=== PATIENT | male | born 1945 | race Caucasian/White ===

== ENCOUNTER 2017-06-14 13:34 | Inpatient (IN) | payer OTHER, BC ==
[~2017-06-14 13:34] MED LIST: DIPRIVAN VIAL ONE; EPHEDRINE SULFATE INJ ONE; LTA KIT LIDOCAINE 4% ONE; NEOSTIGMINE INJ ONE; NORCURON INJ 10 MG VIAL ONE; QUELICIN (OR ANECTINE) ONE; ROBINUL ONE; TORADOL 30 MG VIAL ONE; ULTANE GAS IN ONE; VERSED ONE; ZOFRAN INJ 4 MG VIAL ONE
[2017-06-14 13:50] VITALS: BMI 27.6
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
[2017-06-14] MEDS ORDERED: NS 1000 ML 1,000 ML IV SCH (15:00)
--- NOTE | 2017-06-14 15:17 | CT ---
HISTORY: Abdominal pain. Study: CT abdomen and pelvis without contrast Comparison: None. Technique: Multiple axial images of the abdomen and pelvis were obtained from the lung bases to the pubic symphy sis without the administration of IV contrast. Dose reduction techniques including Automated Exposur e Control (AEC) and adjustment of mA and kV were utilized. Findings: Limited study secondary to lack of IV and oral contrast. 6 mm left lower lobe pulmonary nodule (series 3, image 10 and series 6, image 34). Otherwise, the vis ualized portions of the lung bases are unremarkable. Bilateral nonobstructing punctate renal nephroli ths. Simple appearing 2.7 cm right inferior renal pole cyst. The kidneys are otherwise unremarkable. The liver, spleen, pancreas, and adrenal glands are unremarkable in their CT appearance. The gallblad rosita is unremarkable in its CT appearance. No significant mesenteric lymphadenopathy. No free fluid or free air is seen within the abdomen. Limited evaluation of the large and small bowel secondary to collapse and lack of oral contrast. Extensive diverticulosis without evidence of diverticulitis. The cecum is markedly thickened to 2.1 cm with surrounding soft tissue stranding. The appendix is normal in size but there is some associated soft tissue stranding. No focal fluid collection to suggest abs cess formation. Remaining large and small bowel is unremarkable. The urinary bladder is grossly unrem arkable. Degenerative changes of the spine. No aggressive osseous lesions. IMPRESSION: 1. Marked mucosal thickening of the cecum with associated soft tissue stranding. This may represent a n infectious colitis, but neoplasm not entirely excluded. Recommend clinical correlation and direct v isualization. 2. The appendix appears normal but there is some associated soft tissue stranding. This may be relate d to the cecal inflammation, but early appendicitis not entirely excluded. 3. 6 mm left lower lobe pulmonary nodule. Recommend dedicated CT of the chest on outpatient basis for further characterization. Reported By:
[2017-06-14 15:19] LABS: BASOPHILS # (AUTO) 0.1 X10^3/uL (0.0-0.1); EOSINOPHILS # (AUTO) 0.2 x10^3/uL (0.0-0.2); EOSINOPHILS % (AUTO) 1.7 % (0.9-2.9); HEMATOCRIT 37.4 % (42.0-54.0); LYMPHOCYTES # (AUTO) 1.9 X10^3/uL (1.3-2.9); LYMPHOCYTES % (AUTO) 14.7 % (21.0-51.0); MEAN CORPUSCULAR HEMOGLOBIN 30.4 pg (27.0-34.0); MEAN CORPUSCULAR HGB CONC 34.6 g/dL (33.0-35.0); MEAN CORPUSCULAR VOLUME 87.8 fL (80.0-100.0); MEAN PLATELET VOLUME 7.8 fL (7.4-11.0); MONOCYTES # (AUTO) 1.1 x10^3/uL (0.3-0.8); MONOCYTES % (AUTO) 8.1 % (0.0-13.0); NEUTROPHILS # (AUTO) 9.9 x10^3/uL (2.2-4.8); NEUTROPHILS % (AUTO) 74.5 % (42.0-75.0); PLATELET COUNT 211 X10^3/uL (150.0-450.0); RED BLOOD COUNT 4.26 X10^6/uL (4.7-6.0); RED CELL DISTRIBUTION WIDTH 12.5 % (11.6-16.5); WHITE BLOOD COUNT 13.2 X10^3/uL (3.6-10.0)
[2017-06-14 15:29] LABS: ALANINE AMINOTRANSFERASE 22 Units/L (12-78); ALBUMIN 3.9 g/dL (3.4-5.0); ALKALINE PHOSPHATASE 48 Units/L (46-116); ASPARTATE AMINO TRANSFERASE 15 Units/L (15-37); BLOOD UREA NITROGEN 26 mg/dL (7-18); CARBON DIOXIDE 28.7 mmol/L (21-32); CHLORIDE 103 mmol/L (98-107); CREATININE 1.41 mg/dL (0.70-1.30); SODIUM 139 mmol/L (136-145); TOTAL PROTEIN 7.4 g/dL (6.4-8.2); eGFR BLACK RACES > 60 (>60); eGFR NON BLACK RACES 52 (>60)
[2017-06-14] MEDS ORDERED: ZOSYN VIAL 3.375 GM 3.375 GM in NS 100 ML IV + SPIKE MINIBAG* 100 ML IV ONE (15:34)
[2017-06-14] MEDS ORDERED: ZOSYN VIAL 3.375 GM IV ONE (15:34)
[2017-06-14] MEDS ORDERED: NS 100 ML IV 100 ML IV ONE (15:35)
[2017-06-14] MEDS ORDERED: DECADRON INJ ONE (15:48)
[2017-06-14] MEDS ORDERED: FENTANYL INJ 250 mcg ONE (15:48)
[2017-06-14] MEDS ORDERED: LR 1000 ML IV 1,000 ML IV ONE (15:48)
--- NOTE | 2017-06-14 16:06 | RAD ---
Examination: Portable AP chest History: Preop Findings: Normal heart size with clear lungs and pleural spaces. Impression: No acute or significant chest findings. Reported By:
[2017-06-14 17:17] LABS: BILIRUBIN,URINE NEGATIVE (NEGATIVE); BLOOD/HEMOGLOBIN,URINE NEGATIVE (NEGATIVE); GLUCOSE, URINE NEGATIVE (NEGATIVE); KETONES,URINE 2+ (NEGATIVE); LEUKOCYTE ESTERASE ,URINE NEGATIVE (NEGATIVE); NITRITES,URINE NEGATIVE (NEGATIVE); PROTEIN,URINE NEGATIVE (NEGATIVE); UROBILINOGEN,URINE NORMAL (NORMAL)
[2017-06-14 17:18] LABS: APPEARANCE,URINE CLEAR (CLEAR); COLOR,URINE YELLOW (YELLOW)
[2017-06-14] MEDS ORDERED: DILAUDID INJ ONE ×2 (17:48→19:38)
[2017-06-14] MEDS ORDERED: NS IRRIGATION 1000 ML 1,000 ML with BACITRACIN VIAL 50,000 UNIT IR ONE ×2 (18:30)
[2017-06-14] MEDS ORDERED: ZOFRAN INJ 4 MG VIAL IVP PRN (19:00)
[2017-06-14] MEDS ORDERED: REGLAN INJ 10 MG VIAL IVP PRN (19:00)
[2017-06-14] MEDS ORDERED: PHENERGAN INJ 25 MG IVP PRN (19:00)
[2017-06-14] MEDS ORDERED: BENADRYL INJ 50 MG VIAL IVP PRN (19:00)
[2017-06-14] MEDS ORDERED: NS 1000 ML 1,000 ML ONE (19:17)
[2017-06-14] MEDS ORDERED: BACTROBAN OINT ONE (19:21)
[2017-06-14] MEDS: DILAUDID INJ IVP PRN ×4 (19:45→21:40)
--- NOTE | 2017-06-14 20:11 | OR.GENERIC ---
Post-Op Note Generic - Post-Op Note Operative Report: diagnostic laparoscopy and Rt colectomy was done . finding : inflamation around the cecum with possible sealed perforation with induration and mass of the cecum close to the ileo cecal valve . the appendix was retro cecal and normal Pt did well . EBL 200 to 250 . to keep NPO ,IVF and ATB . DVT prophylaxis .
[2017-06-14] MEDS: D5 1/2 NS 1000 ML 1,000 ML IV SCH (21:00)
[2017-06-14] MEDS: LOVENOX INJ 30 MG SYR SC SCH (21:00)
[2017-06-14] MEDS: ZOSYN VIAL 3.375 GM 3.375 GM in NS 100 ML IV + SPIKE MINIBAG* 100 ML IV SCH ×2 (21:00→21:43)
[2017-06-15] MEDS: DILAUDID INJ IVP PRN ×11 (00:24→22:18)
[2017-06-15] MEDS: D5 1/2 NS 1000 ML 1,000 ML IV SCH ×6 (05:41→23:45)
[2017-06-15] MEDS: ZOSYN VIAL 3.375 GM 3.375 GM in NS 100 ML IV + SPIKE MINIBAG* 100 ML IV SCH ×3 (05:42→21:05)
[2017-06-15 06:20] LABS: BASOPHILS % (AUTO) 0.4 % (0.2-1.0); EOSINOPHILS # (AUTO) 0.1 x10^3/uL (0.0-0.2); EOSINOPHILS % (AUTO) 0.6 % (0.9-2.9); HEMATOCRIT 35.3 % (42.0-54.0); HEMOGLOBIN 12.3 g/dL (13.5-18.0); LYMPHOCYTES # (AUTO) 0.8 X10^3/uL (1.3-2.9); LYMPHOCYTES % (AUTO) 6.2 % (21.0-51.0); MEAN CORPUSCULAR HEMOGLOBIN 30.7 pg (27.0-34.0); MEAN CORPUSCULAR HGB CONC 34.7 g/dL (33.0-35.0); MEAN CORPUSCULAR VOLUME 88.4 fL (80.0-100.0); MEAN PLATELET VOLUME 8.1 fL (7.4-11.0); MONOCYTES # (AUTO) 1.2 x10^3/uL (0.3-0.8); MONOCYTES % (AUTO) 9.6 % (0.0-13.0); NEUTROPHILS # (AUTO) 10.7 x10^3/uL (2.2-4.8); NEUTROPHILS % (AUTO) 83.2 % (42.0-75.0); PLATELET COUNT 177 X10^3/uL (150.0-450.0); RED BLOOD COUNT 3.99 X10^6/uL (4.7-6.0); RED CELL DISTRIBUTION WIDTH 12.7 % (11.6-16.5); WHITE BLOOD COUNT 12.9 X10^3/uL (3.6-10.0)
[2017-06-15 06:38] LABS: ALANINE AMINOTRANSFERASE 18 Units/L (12-78); ALBUMIN 3.1 g/dL (3.4-5.0); ALKALINE PHOSPHATASE 46 Units/L (46-116); ASPARTATE AMINO TRANSFERASE 22 Units/L (15-37); BLOOD UREA NITROGEN 25 mg/dL (7-18); CALCIUM 7.5 mg/dL (8.5-10.1); CARBON DIOXIDE 22.5 mmol/L (21-32); CHLORIDE 106 mmol/L (98-107); COR CA(FOR HYPOALB) 8.2 mg/dL (8.5-10.1); COR NA(FOR HYPERGLY) 141 mmol/L (136-145); CREATININE 1.23 mg/dL (0.70-1.30); SODIUM 140 mmol/L (136-145); TOTAL PROTEIN 6.3 g/dL (6.4-8.2); eGFR BLACK RACES > 60 (>60); eGFR NON BLACK RACES > 60 (>60)
[2017-06-15] MEDS ORDERED: NS 250 ML IV 250 ML IV ONE (07:51)
--- NOTE | 2017-06-15 09:30 | DR.PROGNOT ---
Hospital Progress Notes - Progress Note for Day of: Progress Note Date: 06/15/17 - Chief Complaint Chief Complaint: PO diagnostic Laparoscopy . laparotomy , Rt colectomy for cecal mass suspicious for neoplasm. doing well this am , c/o incisional pain . urine OP is fair . - Past Medical Family Social History Past Med/Fam/Surg Hx: No changes since H&P Allergies: Allergies No Known Drug Allergies Allergy (Verified 06/14/17 15:30) - Review Of Systems ROS: No change since H&P - Vital Signs Vital Signs: Temperature 100 F Pulse Rate [Apical] 101 Pulse Rate 103 Respiratory Rate 12 Blood Pressure [Left Arm] 120/56 Blood Pressure 140/66 O2 Sat by Pulse Oximetry 97 - Physical Exam Oriented: Normal Eyes: Normal Ear: Normal Nose: Normal Cardiovascular: Tachycardia : Other (has fuentes cath in place .) GI:Auscultation: Decreased GI: Tenderness: Diffuse (generalized tenderness with hypoactive BS) Mood Description: Calm Speech Pattern: Clear, Appropriate - Laboratory and Diagnostics Result Diagrams: 06/15/17 05:40 06/15/17 05:40 Labs: Laboratory WBC 12.9 X10^3/uL (3.6-10.0) H 06/15/17 05:40 RBC 3.99 X10^6/uL (4.7-6.0) L 06/15/17 05:40 Hgb 12.3 g/dL (13.5-18.0) L 06/15/17 05:40 Hct 35.3 % (42.0-54.0) L 06/15/17 05:40 MCV 88.4 fL (80.0-100.0) 06/15/17 05:40 MCH 30.7 pg (27.0-34.0) 06/15/17 05:40 MCHC 34.7 g/dL (33.0-35.0) 06/15/17 05:40 RDW 12.7 % (11.6-16.5) 06/15/17 05:40 Plt Count 177 X10^3/uL (150.0-450.0) 06/15/17 05:40 MPV 8.1 fL (7.4-11.0) 06/15/17 05:40 Neut % (Auto) 83.2 % (42.0-75.0) H 06/15/17 05:40 Lymph % (Auto) 6.2 % (21.0-51.0) L 06/15/17 05:40 [place] % (Auto) 9.6 % (0.0-13.0) 06/15/17 05:40 Eos % (Auto) 0.6 % (0.9-2.9) L 06/15/17 05:40 Baso % (Auto) 0.4 % (0.2-1.0) 06/15/17 05:40 Neut # (Auto) 10.7 x10^3/uL (2.2-4.8) H 06/15/17 05:40 Lymph # (Auto) 0.8 X10^3/uL (1.3-2.9) L 06/15/17 05:40 [place] # (Auto) 1.2 x10^3/uL (0.3-0.8) H 06/15/17 05:40 Eos # (Auto) 0.1 x10^3/uL (0.0-0.2) 06/15/17 05:40 Baso # (Auto) 0.0 X10^3/uL (0.0-0.1) 06/15/17 05:40 Absolute Nucleated RBC 0.0 /100WBC 06/15/17 05:40 Sodium 140 mmol/L (136-145) 06/15/17 05:40 Corrected Sodium 141 mmol/L (136-145) 06/15/17 05:40 Potassium 4.5 mmol/L (3.5-5.1) 06/15/17 05:40 Chloride 106 mmol/L (98-107) 06/15/17 05:40 Carbon Dioxide 22.5 mmol/L (21-32) 06/15/17 05:40 BUN 25 mg/dL (7-18) H 06/15/17 05:40 Creatinine 1.23 mg/dL (0.70-1.30) 06/15/17 05:40 Est GFR (MDRD) Af Amer > 60 (>60) 06/15/17 05:40 Est GFR (MDRD) Non-Af > 60 (>60) 06/15/17 05:40 Glucose 140 mg/dL (65-99) H 06/15/17 05:40 Calcium 7.5 mg/dL (8.5-10.1) L 06/15/17 05:40 Corrected Calcium 8.2 mg/dL (8.5-10.1) L 06/15/17 05:40 Total Bilirubin 0.80 mg/dL (0.2-1.0) 06/15/17 05:40 AST 22 Units/L (15-37) 06/15/17 05:40 ALT 18 Units/L (12-78) 06/15/17 05:40 Alkaline Phosphatase 46 Units/L (46-116) 06/15/17 05:40 Total Protein 6.3 g/dL (6.4-8.2) L 06/15/17 05:40 Albumin 3.1 g/dL (3.4-5.0) L 06/15/17 05:40 Globulin 3.2 g/dL (2.5-4.5) 06/15/17 05:40 Albumin/Globulin Ratio 1.0 Ratio (1.1-2.1) L 06/15/17 05:40 Specimen Type Catherized urine 06/14/17 17:10 Urine Color Yellow (YELLOW) 06/14/17 17:10 Urine Appearance Clear (CLEAR) 06/14/17 17:10 Urine pH 5.0 (5.0 - 8.0) 06/14/17 17:10 Ur Specific [place] 1.020 (1.000-1.030) 06/14/17 17:10 Urine Protein Negative (NEGATIVE) 06/14/17 17:10 Urine Glucose (UA) Negative (NEGATIVE) 06/14/17 17:10 Urine Ketones 2+ (NEGATIVE) 06/14/17 17:10 Urine Occult Blood Negative (NEGATIVE) 06/14/17 17:10 Urine Nitrite Negative (NEGATIVE) 06/14/17 17:10 Urine Bilirubin Negative (NEGATIVE) 06/14/17 17:10 Urine Urobilinogen Normal (NORMAL) 06/14/17 17:10 Ur Leukocyte Esterase Negative (NEGATIVE) 06/14/17 17:10 Tissue Pathology To follow 06/14/17 20:46 - Assessment and Plan 1: PO Rt colectomy for sealed perforated cecal mass suspicious for malignancy . CKD. HTN. same PO care , IN ATB, DVT prophylaxis
[2017-06-15] MEDS: LOVENOX INJ 30 MG SYR SC SCH ×2 (09:41→20:21)
--- NOTE | 2017-06-15 11:22 | PCM.PROG ---
Progress Note - Progress Note for Day of Date: 06/15/17 - Subjective Subjective: IS STATUS POST RIGHT COLECTOMY. DURING DIAGNOSTIC LAPAROSCOPY, PATIENT WAS FOUND WITH A MASS OF THE CECUM CLOSE TO THE ILEOCECAL VALVE. BIPOSY WAS TAKEN AND SENT TO PATHOLOGY, HOWEVER, BELIEVES MASS IS SUSPICIOUS FOR MALIGNANCY. TODAY, HE IS ALERT AND ORIENTED, LYING IN BED ON MORNING ROUNDS. SPOUSE IS AT BEDSIDE. HE IS NOTED WITH A NG TUBE TO INTERMITTENT SUCTION. ON EXAMINATION, HEART IS REGULAR IN RATE AND RHYTHM. BILATERAL LUNGS ARE CLEAR TO AUSCULTATION. ABDOMEN IS NOTED WITH TENDERNESS TO PALPATION. OLIVIA DRAIN NOTED. HIS VITALS THIS MORNING ARE 100.0-101-12-98%-120/56. LABS WERE OBTAINED. ABNORMAL LAB VALUES INCLUDE THE FOLLOWING: WBC 12.9, RBC 3.99, HGB 12.3, HCT 35.3, BUN 25, GLUCOSE 140, CALCIUM 7.5, TOTAL PROTEIN 6.3, ALBUMIN 3.1. HE IS CURRENTLY RECEIVING ZOSYN 3.375GM IV TID, LOVENOX 30MG SC BID , AND DILAUDID FOR PAIN. WE WILL CONTINUE WITH CURRENT PLAN OF CARE TODAY. WILL CONTINUE TO FOLLOW PATIENT. WE PLAN TO FOLLOW UP WITH AM LABS AND CONTINUE TO MONITOR PATIENT. - Past Medical Family Social History Past Med/Fam/Surg Hx: No changes since H&P Allergies: Allergies No Known Drug Allergies Allergy (Verified 06/14/17 15:30) - Review of Systems ROS: No change since H&P - Vital Signs and I&O's Vital Signs: Temperature 100 F Pulse Rate [Apical] 96 Pulse Rate 103 Respiratory Rate 14 Blood Pressure [Left Arm] 133/60 Blood Pressure 140/66 O2 Sat by Pulse Oximetry 96 Intake and Output: Intake & Output 06/12/17 06/13/17 06/14/17 06/15/17 11:59 11:59 11:59 11:59 Intake Total 787 Output Total 1095 Balance -308 - Physical Exam Oriented: Normal Eyes: Normal Ear: Normal Nose: Normal Respiratory: Normal Cardiovascular: Tachycardia : Other (has fuentes cath in place .) Auscultation: Bowel Sounds: Decreased Tenderness: Diffuse (generalized tenderness with hypoactive BS) Skin: Normal Musculoskeletal: Normal Psychiatric: Normal Mood Description: Calm Speech Pattern: Clear, Appropriate - Laboratory and Diagnostics Result Diagrams: 06/15/17 05:40 06/15/17 05:40 Labs: Laboratory WBC 12.9 X10^3/uL (3.6-10.0) H 06/15/17 05:40 RBC 3.99 X10^6/uL (4.7-6.0) L 06/15/17 05:40 Hgb 12.3 g/dL (13.5-18.0) L 06/15/17 05:40 Hct 35.3 % (42.0-54.0) L 06/15/17 05:40 MCV 88.4 fL (80.0-100.0) 06/15/17 05:40 MCH 30.7 pg (27.0-34.0) 06/15/17 05:40 MCHC 34.7 g/dL (33.0-35.0) 06/15/17 05:40 RDW 12.7 % (11.6-16.5) 06/15/17 05:40 Plt Count 177 X10^3/uL (150.0-450.0) 06/15/17 05:40 MPV 8.1 fL (7.4-11.0) 06/15/17 05:40 Neut % (Auto) 83.2 % (42.0-75.0) H 06/15/17 05:40 Lymph % (Auto) 6.2 % (21.0-51.0) L 06/15/17 05:40 [place] % (Auto) 9.6 % (0.0-13.0) 06/15/17 05:40 Eos % (Auto) 0.6 % (0.9-2.9) L 06/15/17 05:40 Baso % (Auto) 0.4 % (0.2-1.0) 06/15/17 05:40 Neut # (Auto) 10.7 x10^3/uL (2.2-4.8) H 06/15/17 05:40 Lymph # (Auto) 0.8 X10^3/uL (1.3-2.9) L 06/15/17 05:40 [place] # (Auto) 1.2 x10^3/uL (0.3-0.8) H 06/15/17 05:40 Eos # (Auto) 0.1 x10^3/uL (0.0-0.2) 06/15/17 05:40 Baso # (Auto) 0.0 X10^3/uL (0.0-0.1) 06/15/17 05:40 Absolute Nucleated RBC 0.0 /100WBC 06/15/17 05:40 Sodium 140 mmol/L (136-145) 06/15/17 05:40 Corrected Sodium 141 mmol/L (136-145) 06/15/17 05:40 Potassium 4.5 mmol/L (3.5-5.1) 06/15/17 05:40 Chloride 106 mmol/L (98-107) 06/15/17 05:40 Carbon Dioxide 22.5 mmol/L (21-32) 06/15/17 05:40 BUN 25 mg/dL (7-18) H 06/15/17 05:40 Creatinine 1.23 mg/dL (0.70-1.30) 06/15/17 05:40 Est GFR (MDRD) Af Amer > 60 (>60) 06/15/17 05:40 Est GFR (MDRD) Non-Af > 60 (>60) 06/15/17 05:40 Glucose 140 mg/dL (65-99) H 06/15/17 05:40 Calcium 7.5 mg/dL (8.5-10.1) L 06/15/17 05:40 Corrected Calcium 8.2 mg/dL (8.5-10.1) L 06/15/17 05:40 Total Bilirubin 0.80 mg/dL (0.2-1.0) 06/15/17 05:40 AST 22 Units/L (15-37) 06/15/17 05:40 ALT 18 Units/L (12-78) 06/15/17 05:40 Alkaline Phosphatase 46 Units/L (46-116) 06/15/17 05:40 Total Protein 6.3 g/dL (6.4-8.2) L 06/15/17 05:40 Albumin 3.1 g/dL (3.4-5.0) L 06/15/17 05:40 Globulin 3.2 g/dL (2.5-4.5) 06/15/17 05:40 Albumin/Globulin Ratio 1.0 Ratio (1.1-2.1) L 06/15/17 05:40 Specimen Type Catherized urine 06/14/17 17:10 Urine Color Yellow (YELLOW) 06/14/17 17:10 Urine Appearance Clear (CLEAR) 06/14/17 17:10 Urine pH 5.0 (5.0 - 8.0) 06/14/17 17:10 Ur Specific [place] 1.020 (1.000-1.030) 06/14/17 17:10 Urine Protein Negative (NEGATIVE) 06/14/17 17:10 Urine Glucose (UA) Negative (NEGATIVE) 06/14/17 17:10 Urine Ketones 2+ (NEGATIVE) 06/14/17 17:10 Urine Occult Blood Negative (NEGATIVE) 06/14/17 17:10 Urine Nitrite Negative (NEGATIVE) 06/14/17 17:10 Urine Bilirubin Negative (NEGATIVE) 06/14/17 17:10 Urine Urobilinogen Normal (NORMAL) 06/14/17 17:10 Ur Leukocyte Esterase Negative (NEGATIVE) 06/14/17 17:10 Tissue Pathology To follow 06/14/17 20:46 - Plan (1) Status post colectomy Status: Acute Plan: LOVENOX FOR PROPHYLAXIX, DILAUDID IV FOR PAIN, ZOFRAN FOR NAUSEA, ZOSYN IV TID, CONTINUE TO MONITOR (2) Cecum mass Status: Acute Plan: BIOPSY SENT TO PATHOLOGY FOR REVIEW. CONTINUE TO MONITOR
[2017-06-15] MEDS: ZESTRIL TAB 40 MG PO SCH (20:22)
[2017-06-15] MEDS: NORMODYNE TAB 200 MG PO SCH (20:22)
[2017-06-15] MEDS: NORVASC TAB 5 MG PO SCH (20:22)
[2017-06-15] MEDS: ZOFRAN INJ 4 MG VIAL IV PRN (20:30)
[2017-06-16] MEDS: DILAUDID INJ IVP PRN ×8 (00:17→19:52)
[2017-06-16] MEDS: D5 1/2 NS 1000 ML 1,000 ML IV SCH ×4 (04:32→20:30)
[2017-06-16] MEDS: ZOSYN VIAL 3.375 GM 3.375 GM in NS 100 ML IV + SPIKE MINIBAG* 100 ML IV SCH ×3 (05:06→21:08)
[2017-06-16 05:28] LABS: BASOPHILS # (AUTO) 0.1 X10^3/uL (0.0-0.1); EOSINOPHILS # (AUTO) 0.1 x10^3/uL (0.0-0.2); EOSINOPHILS % (AUTO) 0.8 % (0.9-2.9); HEMATOCRIT 33.6 % (42.0-54.0); HEMOGLOBIN 11.6 g/dL (13.5-18.0); LYMPHOCYTES % (AUTO) 7.6 % (21.0-51.0); MEAN CORPUSCULAR HEMOGLOBIN 30.3 pg (27.0-34.0); MEAN CORPUSCULAR HGB CONC 34.5 g/dL (33.0-35.0); MEAN CORPUSCULAR VOLUME 87.8 fL (80.0-100.0); MEAN PLATELET VOLUME 7.7 fL (7.4-11.0); MONOCYTES # (AUTO) 1.5 x10^3/uL (0.3-0.8); MONOCYTES % (AUTO) 11.4 % (0.0-13.0); NEUTROPHILS # (AUTO) 10.7 x10^3/uL (2.2-4.8); NEUTROPHILS % (AUTO) 79.2 % (42.0-75.0); PLATELET COUNT 189 X10^3/uL (150.0-450.0); RED BLOOD COUNT 3.83 X10^6/uL (4.7-6.0); RED CELL DISTRIBUTION WIDTH 12.4 % (11.6-16.5); WHITE BLOOD COUNT 13.5 X10^3/uL (3.6-10.0)
[2017-06-16 05:48] LABS: ALANINE AMINOTRANSFERASE 22 Units/L (12-78); ALBUMIN 2.8 g/dL (3.4-5.0); ALKALINE PHOSPHATASE 51 Units/L (46-116); ASPARTATE AMINO TRANSFERASE 30 Units/L (15-37); BLOOD UREA NITROGEN 12 mg/dL (7-18); CALCIUM 7.6 mg/dL (8.5-10.1); CARBON DIOXIDE 24.1 mmol/L (21-32); CHLORIDE 105 mmol/L (98-107); COR CA(FOR HYPOALB) 8.6 mg/dL (8.5-10.1); COR NA(FOR HYPERGLY) 138 mmol/L (136-145); CREATININE 1.11 mg/dL (0.70-1.30); SODIUM 137 mmol/L (136-145); TOTAL PROTEIN 6.8 g/dL (6.4-8.2); eGFR BLACK RACES > 60 (>60); eGFR NON BLACK RACES > 60 (>60)
[2017-06-16] MEDS: TAB-A-VITE PO SCH (08:14)
[2017-06-16] MEDS: ZESTRIL TAB 40 MG PO SCH ×2 (08:14→20:20)
[2017-06-16] MEDS: NORVASC TAB 5 MG PO SCH ×2 (08:15→20:20)
[2017-06-16] MEDS: NORMODYNE TAB 200 MG PO SCH ×2 (08:16→20:19)
[2017-06-16] MEDS: LOVENOX INJ 30 MG SYR SC SCH ×2 (08:17→20:19)
--- NOTE | 2017-06-16 09:03 | DR.PROGNOT ---
Hospital Progress Notes - Progress Note for Day of: Progress Note Date: 06/16/17 - Chief Complaint Chief Complaint: PO diagnostic Laparoscopy . laparotomy , Rt colectomy for cecal mass suspicious for neoplasm. doing well this am , c/o incisional pain . moderate drainage in OLIVIA. low grade fever - Past Medical Family Social History Past Med/Fam/Surg Hx: No changes since H&P Allergies: Allergies No Known Drug Allergies Allergy (Verified 06/14/17 15:30) - Review Of Systems ROS: No change since H&P - Vital Signs Vital Signs: Temperature 99.1 F Pulse Rate [Apical] 103 Pulse Rate 103 Respiratory Rate 15 Blood Pressure [Left Arm] 152/66 Blood Pressure 140/66 O2 Sat by Pulse Oximetry 96 - Physical Exam Oriented: Normal Eyes: Normal Ear: Normal Nose: Normal Respiratory: Rhonchi (scattered rhonchi both lung [place] .) Cardiovascular: Tachycardia : Other (has fuentes cath in place .) GI:Auscultation: Decreased GI: Tenderness: Diffuse (generalized tenderness with hypoactive BS) Skin: Normal Musculoskeletal: Normal Psychiatric: Normal Mood Description: Calm Speech Pattern: Clear, Appropriate - Laboratory and Diagnostics Result Diagrams: 06/16/17 04:55 06/16/17 04:55 Labs: Laboratory WBC 13.5 X10^3/uL (3.6-10.0) H 06/16/17 04:55 RBC 3.83 X10^6/uL (4.7-6.0) L 06/16/17 04:55 Hgb 11.6 g/dL (13.5-18.0) L 06/16/17 04:55 Hct 33.6 % (42.0-54.0) L 06/16/17 04:55 MCV 87.8 fL (80.0-100.0) 06/16/17 04:55 MCH 30.3 pg (27.0-34.0) 06/16/17 04:55 MCHC 34.5 g/dL (33.0-35.0) 06/16/17 04:55 RDW 12.4 % (11.6-16.5) 06/16/17 04:55 Plt Count 189 X10^3/uL (150.0-450.0) 06/16/17 04:55 MPV 7.7 fL (7.4-11.0) 06/16/17 04:55 Neut % (Auto) 79.2 % (42.0-75.0) H 06/16/17 04:55 Lymph % (Auto) 7.6 % (21.0-51.0) L 06/16/17 04:55 [place] % (Auto) 11.4 % (0.0-13.0) 06/16/17 04:55 Eos % (Auto) 0.8 % (0.9-2.9) L 06/16/17 04:55 Baso % (Auto) 1.0 % (0.2-1.0) 06/16/17 04:55 Neut # (Auto) 10.7 x10^3/uL (2.2-4.8) H 06/16/17 04:55 Lymph # (Auto) 1.0 X10^3/uL (1.3-2.9) L 06/16/17 04:55 [place] # (Auto) 1.5 x10^3/uL (0.3-0.8) H 06/16/17 04:55 Eos # (Auto) 0.1 x10^3/uL (0.0-0.2) 06/16/17 04:55 Baso # (Auto) 0.1 X10^3/uL (0.0-0.1) 06/16/17 04:55 Absolute Nucleated RBC 0.1 /100WBC 06/16/17 04:55 Sodium 137 mmol/L (136-145) 06/16/17 04:55 Corrected Sodium 138 mmol/L (136-145) 06/16/17 04:55 Potassium 3.9 mmol/L (3.5-5.1) 06/16/17 04:55 Chloride 105 mmol/L (98-107) 06/16/17 04:55 Carbon Dioxide 24.1 mmol/L (21-32) 06/16/17 04:55 BUN 12 mg/dL (7-18) 06/16/17 04:55 Creatinine 1.11 mg/dL (0.70-1.30) 06/16/17 04:55 Est GFR (MDRD) Af Amer > 60 (>60) 06/16/17 04:55 Est GFR (MDRD) Non-Af > 60 (>60) 06/16/17 04:55 Glucose 126 mg/dL (65-99) H 06/16/17 04:55 Calcium 7.6 mg/dL (8.5-10.1) L 06/16/17 04:55 Corrected Calcium 8.6 mg/dL (8.5-10.1) 06/16/17 04:55 Total Bilirubin 0.70 mg/dL (0.2-1.0) 06/16/17 04:55 AST 30 Units/L (15-37) 06/16/17 04:55 ALT 22 Units/L (12-78) 06/16/17 04:55 Alkaline Phosphatase 51 Units/L (46-116) 06/16/17 04:55 Total Protein 6.8 g/dL (6.4-8.2) 06/16/17 04:55 Albumin 2.8 g/dL (3.4-5.0) L 06/16/17 04:55 Globulin 4.0 g/dL (2.5-4.5) 06/16/17 04:55 Albumin/Globulin Ratio 0.7 Ratio (1.1-2.1) L 06/16/17 04:55 Specimen Type Catherized urine 06/14/17 17:10 Urine Color Yellow (YELLOW) 06/14/17 17:10 Urine Appearance Clear (CLEAR) 06/14/17 17:10 Urine pH 5.0 (5.0 - 8.0) 06/14/17 17:10 Ur Specific [place] 1.020 (1.000-1.030) 06/14/17 17:10 Urine Protein Negative (NEGATIVE) 06/14/17 17:10 Urine Glucose (UA) Negative (NEGATIVE) 06/14/17 17:10 Urine Ketones 2+ (NEGATIVE) 06/14/17 17:10 Urine Occult Blood Negative (NEGATIVE) 06/14/17 17:10 Urine Nitrite Negative (NEGATIVE) 06/14/17 17:10 Urine Bilirubin Negative (NEGATIVE) 06/14/17 17:10 Urine Urobilinogen Normal (NORMAL) 06/14/17 17:10 Ur Leukocyte Esterase Negative (NEGATIVE) 06/14/17 17:10 Tissue Pathology To follow 06/14/17 20:46 - Assessment and Plan 1: PO Rt colectomy for 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 CKD. HTN. Ex smoker. pulmonary and PO care , IN ATB, DVT prophylaxis. on liquid only - Problem Patient Problems: Patient Problems Cecum mass (Acute) K63.9 Status post colectomy (Acute) Z90.49
[2017-06-17] MEDS: DILAUDID INJ IVP PRN ×3 (01:40→18:25)
[2017-06-17] MEDS: D5 1/2 NS 1000 ML 1,000 ML IV SCH ×5 (01:40→16:00)
[2017-06-17] MEDS: ZOSYN VIAL 3.375 GM 3.375 GM in NS 100 ML IV + SPIKE MINIBAG* 100 ML IV SCH ×4 (05:02→23:00)
[2017-06-17 06:41] LABS: BASOPHILS # (AUTO) 0.1 X10^3/uL (0.0-0.1); BASOPHILS % (AUTO) 0.7 % (0.2-1.0); EOSINOPHILS # (AUTO) 0.1 x10^3/uL (0.0-0.2); EOSINOPHILS % (AUTO) 1.1 % (0.9-2.9); HEMOGLOBIN 11.1 g/dL (13.5-18.0); LYMPHOCYTES % (AUTO) 8.5 % (21.0-51.0); MEAN CORPUSCULAR HEMOGLOBIN 30.5 pg (27.0-34.0); MEAN CORPUSCULAR HGB CONC 34.6 g/dL (33.0-35.0); MEAN PLATELET VOLUME 8.1 fL (7.4-11.0); MONOCYTES # (AUTO) 1.3 x10^3/uL (0.3-0.8); MONOCYTES % (AUTO) 10.9 % (0.0-13.0); NEUTROPHILS # (AUTO) 9.5 x10^3/uL (2.2-4.8); NEUTROPHILS % (AUTO) 78.8 % (42.0-75.0); PLATELET COUNT 210 X10^3/uL (150.0-450.0); RED BLOOD COUNT 3.64 X10^6/uL (4.7-6.0); RED CELL DISTRIBUTION WIDTH 12.2 % (11.6-16.5); WHITE BLOOD COUNT 12.1 X10^3/uL (3.6-10.0)
[2017-06-17 06:59] LABS: ALANINE AMINOTRANSFERASE 23 Units/L (12-78); ALBUMIN 2.6 g/dL (3.4-5.0); ALKALINE PHOSPHATASE 50 Units/L (46-116); ASPARTATE AMINO TRANSFERASE 25 Units/L (15-37); BLOOD UREA NITROGEN 9 mg/dL (7-18); CALCIUM 8.2 mg/dL (8.5-10.1); CARBON DIOXIDE 26.2 mmol/L (21-32); CHLORIDE 104 mmol/L (98-107); COR CA(FOR HYPOALB) 9.3 mg/dL (8.5-10.1); COR NA(FOR HYPERGLY) 139 mmol/L (136-145); CREATININE 1.04 mg/dL (0.70-1.30); SODIUM 138 mmol/L (136-145); TOTAL PROTEIN 6.3 g/dL (6.4-8.2); eGFR BLACK RACES > 60 (>60); eGFR NON BLACK RACES > 60 (>60)
[2017-06-17] MEDS ORDERED: MAGNESIUM SULFATE 1 GM/100 mL PREMIX 1 GM/100 ML BAG IV PRN (08:09)
[2017-06-17] MEDS ORDERED: POTASSIUM CHL 60 MEQ/NS 0.45% 500 ML IV PRN (08:09)
[2017-06-17] MEDS ORDERED: POTASSIUM CHL 40 MEQ/NS 0.45% 500 ML IV PRN (08:09)
[2017-06-17] MEDS ORDERED: POTASSIUM CHLORIDE LIQ 20 MEQ UDC PO PRN (08:09)
[2017-06-17] MEDS ORDERED: K-RIDER 10 MEQ/NS 100 ML 10 MEQ/100 ML BAG IV PRN (08:09)
--- NOTE | 2017-06-17 08:42 | DR.PROGNOT ---
Hospital Progress Notes - Progress Note for Day of: Progress Note Date: 06/17/17 - Chief Complaint Chief Complaint: PO diagnostic Laparoscopy . laparotomy , Rt colectomy for cecal mass suspicious for neoplasm. doing well this am ,. less abdominal pain ,c/o severe heartburn and reflux. moderate drainage in OLIVIA. low grade fever - Past Medical Family Social History Past Med/Fam/Surg Hx: No changes since H&P Allergies: Allergies No Known Drug Allergies Allergy (Verified 06/14/17 15:30) - Review Of Systems ROS: No change since H&P - Vital Signs Vital Signs: Temperature 99.5 F Pulse Rate [Apical] 92 Pulse Rate 103 Respiratory Rate 26 Blood Pressure [Left Arm] 172/73 Blood Pressure 140/66 O2 Sat by Pulse Oximetry 93 - Physical Exam Oriented: Normal Eyes: Normal Ear: Normal Nose: Normal Respiratory: Rhonchi (scattered rhonchi both lung [place] .) Cardiovascular: Tachycardia : Other (has fuentes cath in place .) GI:Auscultation: Decreased GI: Tenderness: Diffuse (generalized tenderness with hypoactive BS) Skin: Normal Musculoskeletal: Normal Psychiatric: Normal Mood Description: Calm Speech Pattern: Clear, Appropriate - Laboratory and Diagnostics Result Diagrams: 06/17/17 05:38 04 05:38 Labs: Laboratory WBC 12.1 X10^3/uL (3.6-10.0) H 06/17/17 05:38 RBC 3.64 X10^6/uL (4.7-6.0) L 06/17/17 05:38 Hgb 11.1 g/dL (13.5-18.0) L 06/17/17 05:38 Hct 32.0 % (42.0-54.0) L 06/17/17 05:38 MCV 88.0 fL (80.0-100.0) 06/17/17 05:38 MCH 30.5 pg (27.0-34.0) 06/17/17 05:38 MCHC 34.6 g/dL (33.0-35.0) 06/17/17 05:38 RDW 12.2 % (11.6-16.5) 06/17/17 05:38 Plt Count 210 X10^3/uL (150.0-450.0) 06/17/17 05:38 MPV 8.1 fL (7.4-11.0) 06/17/17 05:38 Neut % (Auto) 78.8 % (42.0-75.0) H 06/17/17 05:38 Lymph % (Auto) 8.5 % (21.0-51.0) L 06/17/17 05:38 [place] % (Auto) 10.9 % (0.0-13.0) 06/17/17 05:38 Eos % (Auto) 1.1 % (0.9-2.9) 06/17/17 05:38 Baso % (Auto) 0.7 % (0.2-1.0) 06/17/17 05:38 Neut # (Auto) 9.5 x10^3/uL (2.2-4.8) H 06/17/17 05:38 Lymph # (Auto) 1.0 X10^3/uL (1.3-2.9) L 06/17/17 05:38 [place] # (Auto) 1.3 x10^3/uL (0.3-0.8) H 06/17/17 05:38 Eos # (Auto) 0.1 x10^3/uL (0.0-0.2) 06/17/17 05:38 Baso # (Auto) 0.1 X10^3/uL (0.0-0.1) 06/17/17 05:38 Absolute Nucleated RBC 0.0 /100WBC 06/17/17 05:38 Sodium 138 mmol/L (136-145) 06/17/17 05:38 Corrected Sodium 139 mmol/L (136-145) 06/17/17 05:38 Potassium 3.4 mmol/L (3.5-5.1) L 06/17/17 05:38 Chloride 104 mmol/L (98-107) 06/17/17 05:38 Carbon Dioxide 26.2 mmol/L (21-32) 06/17/17 05:38 BUN 9 mg/dL (7-18) 06/17/17 05:38 Creatinine 1.04 mg/dL (0.70-1.30) 06/17/17 05:38 Est GFR (MDRD) Af Amer > 60 (>60) 06/17/17 05:38 Est GFR (MDRD) Non-Af > 60 (>60) 06/17/17 05:38 Glucose 132 mg/dL (65-99) H 06/17/17 05:38 Calcium 8.2 mg/dL (8.5-10.1) L 06/17/17 05:38 Corrected Calcium 9.3 mg/dL (8.5-10.1) 06/17/17 05:38 Magnesium 2.1 mg/dL (1.7-2.9) 06/17/17 05:38 Total Bilirubin 0.70 mg/dL (0.2-1.0) 06/17/17 05:38 AST 25 Units/L (15-37) 06/17/17 05:38 ALT 23 Units/L (12-78) 06/17/17 05:38 Alkaline Phosphatase 50 Units/L (46-116) 06/17/17 05:38 Total Protein 6.3 g/dL (6.4-8.2) L 06/17/17 05:38 Albumin 2.6 g/dL (3.4-5.0) L 06/17/17 05:38 Globulin 3.7 g/dL (2.5-4.5) 06/17/17 05:38 Albumin/Globulin Ratio 0.7 Ratio (1.1-2.1) L 06/17/17 05:38 Specimen Type Catherized urine 06/14/17 17:10 Urine Color Yellow (YELLOW) 06/14/17 17:10 Urine Appearance Clear (CLEAR) 06/14/17 17:10 Urine pH 5.0 (5.0 - 8.0) 06/14/17 17:10 Ur Specific [place] 1.020 (1.000-1.030) 06/14/17 17:10 Urine Protein Negative (NEGATIVE) 06/14/17 17:10 Urine Glucose (UA) Negative (NEGATIVE) 06/14/17 17:10 Urine Ketones 2+ (NEGATIVE) 06/14/17 17:10 Urine Occult Blood Negative (NEGATIVE) 06/14/17 17:10 Urine Nitrite Negative (NEGATIVE) 06/14/17 17:10 Urine Bilirubin Negative (NEGATIVE) 06/14/17 17:10 Urine Urobilinogen Normal (NORMAL) 06/14/17 17:10 Ur Leukocyte Esterase Negative (NEGATIVE) 06/14/17 17:10 Tissue Pathology To follow 06/14/17 20:46 - Assessment and Plan 1: PO Rt colectomy for 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 HTN. Ex smoker. pulmonary and PO care , on IV ATB, DVT prophylaxis. on liquid only . added protonix . to have chest xray today. - Problem Patient Problems: Patient Problems Cecum mass (Acute) K63.9 Status post colectomy (Acute) Z90.49
[2017-06-17] MEDS: NORVASC TAB 5 MG PO SCH ×2 (08:43→20:51)
[2017-06-17] MEDS: TAB-A-VITE PO SCH (08:43)
[2017-06-17] MEDS: NORMODYNE TAB 200 MG PO SCH ×2 (08:43→20:51)
[2017-06-17] MEDS: ZESTRIL TAB 40 MG PO SCH ×2 (08:43→20:50)
[2017-06-17] MEDS: LOVENOX INJ 30 MG SYR SC SCH ×2 (08:44→20:50)
[2017-06-17] MEDS: K-LYTE EFFERVESCENT PO PRN (08:53)
[2017-06-17] MEDS: PROTONIX INJ 40 MG VIAL IVP SCH ×2 (08:55→20:50)
--- NOTE | 2017-06-17 09:33 | RAD ---
HISTORY: Fever Study: Chest AP portable Comparison: 06/14/2017 Findings: The heart is within normal limits in size. The harika are normal. The lungs are hypo inflated but free of acute infiltrates. Minimal bibasilar subsegmental atelectasis is present. The bony thorax is unrem arkable. IMPRESSION: No acute infiltrates Minimal bibasilar subsegmental atelectasis Reported By:
[2017-06-17] MEDS: ZOFRAN INJ 4 MG VIAL IV PRN (10:04)
--- NOTE | 2017-06-17 20:38 | PCM.PROG ---
Progress Note - Progress Note for Day of Date: 06/16/17 - Subjective Subjective: IS STATUS POST RIGHT COLECTOMY FOR CECAL MASS SUSPICIOUS FOR MALIGNANCY. TODAY, HE IS ALERT AND ORIENTED, LYING IN BED ON MORNING ROUNDS. SPOUSE IS AT BEDSIDE. HE IS NOTED WITH COMPLAINTS OF PAIN TO INCISION SITE. ON EXAMINATION, HEART IS REGULAR IN RATE AND RHYTHM. BILATERAL LUNGS ARE NOTED WITH RHONCHI THROUGHOUT. ABDOMEN IS NOTED WITH TENDERNESS TO PALPATION. OLIVIA DRAIN NOTED WITH MODERATE DRAINAGE. NG TUBE WAS REMOVED YESTERDAY. HIS VITALS THIS MORNING ARE 100.7-101-22-93%-144/64. LABS WERE OBTAINED. ABNORMAL LAB VALUES INCLUDE THE FOLLOWING: WBC 13.5, 3.83, HGB 11.6, HCT 33.6, GLUCOSE 126, CALCIUM 7.3, ALBUMIN 2.8. PATHOLOGY REPORT IS PENDING. HE CONTINUES TO RECEIVE ZOSYN 3.375GM IV TID, LOVENOX 30MG SC BID, AND DILAUDID FOR PAIN. WE WILL CONTINUE WITH CURRENT PLAN OF CARE TODAY. WILL CONTINUE TO FOLLOW PATIENT. WE PLAN TO FOLLOW UP WITH AM LABS AND CONTINUE TO MONITOR PATIENT. - Past Medical Family Social History Past Med/Fam/Surg Hx: No changes since H&P Allergies: Allergies No Known Drug Allergies Allergy (Verified 06/14/17 15:30) - Review of Systems ROS: No change since H&P - Vital Signs and I&O's Vital Signs: Temperature 97.9 F Pulse Rate [Apical] 76 Pulse Rate 103 Respiratory Rate 24 Blood Pressure [Left Arm] 138/64 Blood Pressure 140/66 O2 Sat by Pulse Oximetry 97 Intake and Output: Intake & Output 06/15/17 06/16/17 06/17/17 06/18/17 11:59 11:59 11:59 11:59 Intake Total 787 3936 4411 1535 Output Total 1270 1695 3065 0 Balance -483 2241 1346 1535 - Physical Exam Oriented: Normal Eyes: Normal Ear: Normal Nose: Normal Respiratory: Generalized, Rhonchi (scattered rhonchi both lung [place] .) Cardiovascular: Tachycardia : Other (has fuentes cath in place .) Auscultation: Bowel Sounds: Decreased Palpation: Normal Tenderness: Diffuse (generalized tenderness with hypoactive BS) Skin: Normal Musculoskeletal: Normal Psychiatric: Normal Mood Description: Calm Speech Pattern: Clear, Appropriate - Laboratory and Diagnostics Result Diagrams: 06/17/17 05:38 06/17/17 05:38 Labs: Laboratory WBC 12.1 X10^3/uL (3.6-10.0) H 06/17/17 05:38 RBC 3.64 X10^6/uL (4.7-6.0) L 06/17/17 05:38 Hgb 11.1 g/dL (13.5-18.0) L 06/17/17 05:38 Hct 32.0 % (42.0-54.0) L 06/17/17 05:38 MCV 88.0 fL (80.0-100.0) 06/17/17 05:38 MCH 30.5 pg (27.0-34.0) 06/17/17 05:38 MCHC 34.6 g/dL (33.0-35.0) 06/17/17 05:38 RDW 12.2 % (11.6-16.5) 06/17/17 05:38 Plt Count 210 X10^3/uL (150.0-450.0) 06/17/17 05:38 MPV 8.1 fL (7.4-11.0) 06/17/17 05:38 Neut % (Auto) 78.8 % (42.0-75.0) H 06/17/17 05:38 Lymph % (Auto) 8.5 % (21.0-51.0) L 06/17/17 05:38 [place] % (Auto) 10.9 % (0.0-13.0) 06/17/17 05:38 Eos % (Auto) 1.1 % (0.9-2.9) 06/17/17 05:38 Baso % (Auto) 0.7 % (0.2-1.0) 06/17/17 05:38 Neut # (Auto) 9.5 x10^3/uL (2.2-4.8) H 06/17/17 05:38 Lymph # (Auto) 1.0 X10^3/uL (1.3-2.9) L 06/17/17 05:38 [place] # (Auto) 1.3 x10^3/uL (0.3-0.8) H 06/17/17 05:38 Eos # (Auto) 0.1 x10^3/uL (0.0-0.2) 06/17/17 05:38 Baso # (Auto) 0.1 X10^3/uL (0.0-0.1) 06/17/17 05:38 Absolute Nucleated RBC 0.0 /100WBC 06/17/17 05:38 Sodium 138 mmol/L (136-145) 06/17/17 05:38 Corrected Sodium 139 mmol/L (136-145) 06/17/17 05:38 Potassium 3.4 mmol/L (3.5-5.1) L 06/17/17 05:38 Chloride 104 mmol/L (98-107) 06/17/17 05:38 Carbon Dioxide 26.2 mmol/L (21-32) 06/17/17 05:38 BUN 9 mg/dL (7-18) 06/17/17 05:38 Creatinine 1.04 mg/dL (0.70-1.30) 06/17/17 05:38 Est GFR (MDRD) Af Amer > 60 (>60) 06/17/17 05:38 Est GFR (MDRD) Non-Af > 60 (>60) 06/17/17 05:38 Glucose 132 mg/dL (65-99) H 06/17/17 05:38 Calcium 8.2 mg/dL (8.5-10.1) L 06/17/17 05:38 Corrected Calcium 9.3 mg/dL (8.5-10.1) 06/17/17 05:38 Magnesium 2.1 mg/dL (1.7-2.9) 06/17/17 05:38 Total Bilirubin 0.70 mg/dL (0.2-1.0) 06/17/17 05:38 AST 25 Units/L (15-37) 06/17/17 05:38 ALT 23 Units/L (12-78) 06/17/17 05:38 Alkaline Phosphatase 50 Units/L (46-116) 06/17/17 05:38 Total Protein 6.3 g/dL (6.4-8.2) L 06/17/17 05:38 Albumin 2.6 g/dL (3.4-5.0) L 06/17/17 05:38 Globulin 3.7 g/dL (2.5-4.5) 06/17/17 05:38 Albumin/Globulin Ratio 0.7 Ratio (1.1-2.1) L 06/17/17 05:38 Specimen Type Catherized urine 06/14/17 17:10 Urine Color Yellow (YELLOW) 06/14/17 17:10 Urine Appearance Clear (CLEAR) 06/14/17 17:10 Urine pH 5.0 (5.0 - 8.0) 06/14/17 17:10 Ur Specific [place] 1.020 (1.000-1.030) 06/14/17 17:10 Urine Protein Negative (NEGATIVE) 06/14/17 17:10 Urine Glucose (UA) Negative (NEGATIVE) 06/14/17 17:10 Urine Ketones 2+ (NEGATIVE) 06/14/17 17:10 Urine Occult Blood Negative (NEGATIVE) 06/14/17 17:10 Urine Nitrite Negative (NEGATIVE) 06/14/17 17:10 Urine Bilirubin Negative (NEGATIVE) 06/14/17 17:10 Urine Urobilinogen Normal (NORMAL) 06/14/17 17:10 Ur Leukocyte Esterase Negative (NEGATIVE) 06/14/17 17:10 Tissue Pathology To follow 06/14/17 20:46 - Plan (1) Status post colectomy Status: Acute Plan: LOVENOX FOR PROPHYLAXIS, DILAUDID IV FOR PAIN, ZOFRAN FOR NAUSEA, ZOSYN IV TID, CONTINUE TO MONITOR (2) Cecum mass Status: Acute Plan: BIOPSY SENT TO PATHOLOGY FOR REVIEW. CONTINUE TO MONITOR
[2017-06-18] MEDS: D5 1/2 NS 1000 ML 1,000 ML IV SCH ×6 (00:28→15:57)
[2017-06-18] MEDS: DILAUDID INJ IVP PRN ×4 (00:30→21:51)
[2017-06-18 05:25] LABS: BASOPHILS # (AUTO) 0.1 X10^3/uL (0.0-0.1); BASOPHILS % (AUTO) 0.6 % (0.2-1.0); EOSINOPHILS # (AUTO) 0.3 x10^3/uL (0.0-0.2); EOSINOPHILS % (AUTO) 2.8 % (0.9-2.9); HEMATOCRIT 32.4 % (42.0-54.0); HEMOGLOBIN 11.4 g/dL (13.5-18.0); LYMPHOCYTES # (AUTO) 1.5 X10^3/uL (1.3-2.9); LYMPHOCYTES % (AUTO) 13.8 % (21.0-51.0); MEAN CORPUSCULAR HEMOGLOBIN 30.8 pg (27.0-34.0); MEAN CORPUSCULAR VOLUME 87.9 fL (80.0-100.0); MEAN PLATELET VOLUME 7.6 fL (7.4-11.0); MONOCYTES # (AUTO) 1.2 x10^3/uL (0.3-0.8); MONOCYTES % (AUTO) 11.2 % (0.0-13.0); NEUTROPHILS # (AUTO) 7.8 x10^3/uL (2.2-4.8); NEUTROPHILS % (AUTO) 71.6 % (42.0-75.0); PLATELET COUNT 259 X10^3/uL (150.0-450.0); RED BLOOD COUNT 3.69 X10^6/uL (4.7-6.0); RED CELL DISTRIBUTION WIDTH 12.4 % (11.6-16.5); WHITE BLOOD COUNT 10.9 X10^3/uL (3.6-10.0)
[2017-06-18 05:45] LABS: ALANINE AMINOTRANSFERASE 20 Units/L (12-78); ALBUMIN 2.4 g/dL (3.4-5.0); ALKALINE PHOSPHATASE 41 Units/L (46-116); ASPARTATE AMINO TRANSFERASE 17 Units/L (15-37); BLOOD UREA NITROGEN 10 mg/dL (7-18); CALCIUM 7.8 mg/dL (8.5-10.1); CHLORIDE 105 mmol/L (98-107); COR CA(FOR HYPOALB) 9.1 mg/dL (8.5-10.1); COR NA(FOR HYPERGLY) 141 mmol/L (136-145); CREATININE 1.14 mg/dL (0.70-1.30); SODIUM 141 mmol/L (136-145); TOTAL PROTEIN 5.9 g/dL (6.4-8.2); eGFR BLACK RACES > 60 (>60); eGFR NON BLACK RACES > 60 (>60)
[2017-06-18] MEDS: ZOSYN VIAL 3.375 GM 3.375 GM in NS 100 ML IV + SPIKE MINIBAG* 100 ML IV SCH ×2 (06:00→13:17)
--- NOTE | 2017-06-18 07:10 | RAD ---
HISTORY: Fever Study: Chest AP portable Comparison: 06/17/2017 Findings: The heart is within normal limits in size. The harika are normal. The right lung and left upper lung fi elds are clear. There has been interval development since the prior examination of increasing density in the retrocardiac area of the left lower lobe obscuring the left hemidiaphragm. This could be on t he basis of atelectasis, infiltrate, effusion, or combination. The bony thorax is unremarkable. IMPRESSION: Interval development of increasing density in the retrocardiac area of the left lower lobe which coul d be on the basis of atelectasis, infiltrate, effusion or combination Reported By:
[2017-06-18] MEDS: LOVENOX INJ 30 MG SYR SC SCH ×2 (08:00→20:27)
[2017-06-18] MEDS: TAB-A-VITE PO SCH (08:00)
[2017-06-18] MEDS: PROTONIX INJ 40 MG VIAL IVP SCH ×2 (08:00→20:26)
[2017-06-18] MEDS: ZESTRIL TAB 40 MG PO SCH ×2 (08:00→20:26)
[2017-06-18] MEDS: NORVASC TAB 5 MG PO SCH ×2 (08:01→20:27)
[2017-06-18] MEDS: NORMODYNE TAB 200 MG PO SCH ×2 (08:01→20:27)
--- NOTE | 2017-06-18 08:52 | DR.PROGNOT ---
Hospital Progress Notes - Progress Note for Day of: Progress Note Date: 06/18/17 - Chief Complaint Chief Complaint: PO diagnostic Laparoscopy . laparotomy , Rt colectomy for cecal mass suspicious for neoplasm. doing well this am ,. no BM yet , no nausea or vomiting. moderate drainage in OLIVIA. afebrile for 24 h . will advance diet. low grade fever - Past Medical Family Social History Past Med/Fam/Surg Hx: No changes since H&P Allergies: Allergies No Known Drug Allergies Allergy (Verified 06/14/17 15:30) - Review Of Systems ROS: No change since H&P - Vital Signs Vital Signs: Temperature 98.1 F Pulse Rate [Apical] 66 Pulse Rate 103 Respiratory Rate 20 Blood Pressure [Left Arm] 132/62 Blood Pressure 140/66 O2 Sat by Pulse Oximetry 95 - Physical Exam Oriented: Normal Eyes: Normal Ear: Normal Nose: Normal Respiratory: Generalized, Rhonchi (scattered rhonchi both lung [place] .) Cardiovascular: Tachycardia : Other (has fuentes cath in place .) GI:Auscultation: Decreased GI:Palpation: Normal GI: Tenderness: Diffuse (mild distention . active BS .) Skin: Normal Musculoskeletal: Normal Psychiatric: Normal Mood Description: Calm Speech Pattern: Clear, Appropriate - Laboratory and Diagnostics Result Diagrams: 06/18/17 05:00 06/18/17 05:00 Labs: Laboratory WBC 10.9 X10^3/uL (3.6-10.0) H 06/18/17 05:00 RBC 3.69 X10^6/uL (4.7-6.0) L 06/18/17 05:00 Hgb 11.4 g/dL (13.5-18.0) L 06/18/17 05:00 Hct 32.4 % (42.0-54.0) L 06/18/17 05:00 MCV 87.9 fL (80.0-100.0) 06/18/17 05:00 MCH 30.8 pg (27.0-34.0) 06/18/17 05:00 MCHC 35.0 g/dL (33.0-35.0) 06/18/17 05:00 RDW 12.4 % (11.6-16.5) 06/18/17 05:00 Plt Count 259 X10^3/uL (150.0-450.0) 06/18/17 05:00 MPV 7.6 fL (7.4-11.0) 06/18/17 05:00 Neut % (Auto) 71.6 % (42.0-75.0) 06/18/17 05:00 Lymph % (Auto) 13.8 % (21.0-51.0) L 06/18/17 05:00 [place] % (Auto) 11.2 % (0.0-13.0) 06/18/17 05:00 Eos % (Auto) 2.8 % (0.9-2.9) 06/18/17 05:00 Baso % (Auto) 0.6 % (0.2-1.0) 06/18/17 05:00 Neut # (Auto) 7.8 x10^3/uL (2.2-4.8) H 06/18/17 05:00 Lymph # (Auto) 1.5 X10^3/uL (1.3-2.9) 06/18/17 05:00 [place] # (Auto) 1.2 x10^3/uL (0.3-0.8) H 06/18/17 05:00 Eos # (Auto) 0.3 x10^3/uL (0.0-0.2) H 06/18/17 05:00 Baso # (Auto) 0.1 X10^3/uL (0.0-0.1) 06/18/17 05:00 Absolute Nucleated RBC 0.0 /100WBC 06/18/17 05:00 Sodium 141 mmol/L (136-145) 06/18/17 05:00 Corrected Sodium 141 mmol/L (136-145) 06/18/17 05:00 Potassium 3.3 mmol/L (3.5-5.1) L 06/18/17 05:00 Chloride 105 mmol/L (98-107) 06/18/17 05:00 Carbon Dioxide 29.0 mmol/L (21-32) 06/18/17 05:00 BUN 10 mg/dL (7-18) 06/18/17 05:00 Creatinine 1.14 mg/dL (0.70-1.30) 06/18/17 05:00 Est GFR (MDRD) Af Amer > 60 (>60) 06/18/17 05:00 Est GFR (MDRD) Non-Af > 60 (>60) 06/18/17 05:00 Glucose 112 mg/dL (65-99) H 06/18/17 05:00 Calcium 7.8 mg/dL (8.5-10.1) L 06/18/17 05:00 Corrected Calcium 9.1 mg/dL (8.5-10.1) 06/18/17 05:00 Magnesium 2.1 mg/dL (1.7-2.9) 06/17/17 05:38 Total Bilirubin 0.60 mg/dL (0.2-1.0) 06/18/17 05:00 AST 17 Units/L (15-37) 06/18/17 05:00 ALT 20 Units/L (12-78) 06/18/17 05:00 Alkaline Phosphatase 41 Units/L (46-116) L 06/18/17 05:00 Total Protein 5.9 g/dL (6.4-8.2) L 06/18/17 05:00 Albumin 2.4 g/dL (3.4-5.0) L 06/18/17 05:00 Globulin 3.5 g/dL (2.5-4.5) 06/18/17 05:00 Albumin/Globulin Ratio 0.7 Ratio (1.1-2.1) L 06/18/17 05:00 Specimen Type Catherized urine 06/14/17 17:10 Urine Color Yellow (YELLOW) 06/14/17 17:10 Urine Appearance Clear (CLEAR) 06/14/17 17:10 Urine pH 5.0 (5.0 - 8.0) 06/14/17 17:10 Ur Specific [place] 1.020 (1.000-1.030) 06/14/17 17:10 Urine Protein Negative (NEGATIVE) 06/14/17 17:10 Urine Glucose (UA) Negative (NEGATIVE) 06/14/17 17:10 Urine Ketones 2+ (NEGATIVE) 06/14/17 17:10 Urine Occult Blood Negative (NEGATIVE) 06/14/17 17:10 Urine Nitrite Negative (NEGATIVE) 06/14/17 17:10 Urine Bilirubin Negative (NEGATIVE) 06/14/17 17:10 Urine Urobilinogen Normal (NORMAL) 04/15/18 17:10 Ur Leukocyte Esterase Negative (NEGATIVE) 06/14/17 17:10 Tissue Pathology To follow 06/14/17 20:46 - Assessment and Plan 1: PO Rt colectomy for 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 HTN. Ex smoker. same pulmonary and post operative care , DVT prophylaxis. on full liquid . - Problem Patient Problems: Patient Problems Cecum mass (Acute) K63.9 Status post colectomy (Acute) Z90.49
[2017-06-18] MEDS: DUONEB 0.5 MG/3 MG NEB SCH ×4 (11:56→20:35)
--- NOTE | 2017-06-18 13:32 | PCM.PROG ---
Progress Note - Progress Note for Day of Date: 06/17/17 - Subjective Subjective: IS STATUS POST RIGHT COLECTOMY FOR CECAL MASS SUSPICIOUS FOR MALIGNANCY. TODAY, HE IS ALERT AND ORIENTED, LYING IN BED ON MORNING ROUNDS. SPOUSE IS AT BEDSIDE. HE CONTINUES WITH MILD PAIN TO INCISION SITE. HE IS ALSO NOTED WITH COMPLAINTS OF HEARTBURN, REFLUX, AND SHORTNESS OF BREATH. ON EXAMINATION, HEART IS REGULAR IN RATE AND RHYTHM. BILATERAL LUNGS CONTINUE WITH RHONCHI THROUGHOUT. ABDOMEN IS NOTED WITH TENDERNESS TO PALPATION. OLIVIA DRAIN NOTED WITH MODERATE DRAINAGE. HIS VITALS THIS MORNING ARE 99.4-90-12-94%-147/ 64. LABS WERE OBTAINED. ABNORMAL LAB VALUES INCLUDE THE FOLLOWING: WBC 12.1, RBC 3.64, HGB 11.1, HCT 32.0, POTASSIUM 3.4, GLUCOSE 132, CALCIUM 8.2, TOTAL PROTEIN 6.3, ALBUMIN 2.6. A CHEST XRAY WAS OBTAINED TODAY AND REVEALED NO ACUTE INFILTRATES. MINIMAL BIBASILAR SUBSEGMENTAL ATELECTASIS. HE IS CURRENTLY RECEIVING ZOSYN 3.375GM IV TID. WE WILL CONTINUE WITH CURRENT PLAN OF CARE TODAY. WILL CONTINUE TO FOLLOW PATIENT. WE PLAN TO FOLLOW UP WITH AM LABS AND CONTINUE TO MONITOR PATIENT. - Past Medical Family Social History Past Med/Fam/Surg Hx: No changes since H&P Allergies: Allergies No Known Drug Allergies Allergy (Verified 06/14/17 15:30) - Review of Systems ROS: No change since H&P - Vital Signs and I&O's Vital Signs: Temperature 98.6 F Pulse Rate [Apical] 69 Pulse Rate 69 Respiratory Rate 23 Blood Pressure [Left Arm] 148/66 Blood Pressure 140/66 O2 Sat by Pulse Oximetry 96 Intake and Output: Intake & Output 06/16/17 06/17/17 06/18/17 06/19/17 11:59 11:59 11:59 11:59 Intake Total 3936 4411 5079 Output Total 1695 3065 3345 Balance 2241 9316 1734 - Physical Exam Oriented: Normal Eyes: Normal Ear: Normal Nose: Normal Throat: Normal Respiratory: Generalized, Rhonchi (scattered rhonchi both lung [place] .) Cardiovascular: Tachycardia : Normal Tenderness: Diffuse Skin: Normal Musculoskeletal: Normal Psychiatric: Normal Mood Description: Calm Speech Pattern: Clear, Appropriate - Laboratory and Diagnostics Result Diagrams: 06/18/17 05:00 06/18/17 05:00 Labs: Laboratory WBC 10.9 X10^3/uL (3.6-10.0) H 06/18/17 05:00 RBC 3.69 X10^6/uL (4.7-6.0) L 06/18/17 05:00 Hgb 11.4 g/dL (13.5-18.0) L 06/18/17 05:00 Hct 32.4 % (42.0-54.0) L 06/18/17 05:00 MCV 87.9 fL (80.0-100.0) 06/18/17 05:00 MCH 30.8 pg (27.0-34.0) 06/18/17 05:00 MCHC 35.0 g/dL (33.0-35.0) 06/18/17 05:00 RDW 12.4 % (11.6-16.5) 06/18/17 05:00 Plt Count 259 X10^3/uL (150.0-450.0) 06/18/17 05:00 MPV 7.6 fL (7.4-11.0) 06/18/17 05:00 Neut % (Auto) 71.6 % (42.0-75.0) 06/18/17 05:00 Lymph % (Auto) 13.8 % (21.0-51.0) L 06/18/17 05:00 [place] % (Auto) 11.2 % (0.0-13.0) 06/18/17 05:00 Eos % (Auto) 2.8 % (0.9-2.9) 06/18/17 05:00 Baso % (Auto) 0.6 % (0.2-1.0) 06/18/17 05:00 Neut # (Auto) 7.8 x10^3/uL (2.2-4.8) H 06/18/17 05:00 Lymph # (Auto) 1.5 X10^3/uL (1.3-2.9) 06/18/17 05:00 [place] # (Auto) 1.2 x10^3/uL (0.3-0.8) H 06/18/17 05:00 Eos # (Auto) 0.3 x10^3/uL (0.0-0.2) H 06/18/17 05:00 Baso # (Auto) 0.1 X10^3/uL (0.0-0.1) 06/18/17 05:00 Absolute Nucleated RBC 0.0 /100WBC 06/18/17 05:00 Sodium 141 mmol/L (136-145) 06/18/17 05:00 Corrected Sodium 141 mmol/L (136-145) 06/18/17 05:00 Potassium 3.3 mmol/L (3.5-5.1) L 06/18/17 05:00 Chloride 105 mmol/L (98-107) 06/18/17 05:00 Carbon Dioxide 29.0 mmol/L (21-32) 06/18/17 05:00 BUN 10 mg/dL (7-18) 06/18/17 05:00 Creatinine 1.14 mg/dL (0.70-1.30) 06/18/17 05:00 Est GFR (MDRD) Af Amer > 60 (>60) 06/18/17 05:00 Est GFR (MDRD) Non-Af > 60 (>60) 06/18/17 05:00 Glucose 112 mg/dL (65-99) H 06/18/17 05:00 Calcium 7.8 mg/dL (8.5-10.1) L 06/18/17 05:00 Corrected Calcium 9.1 mg/dL (8.5-10.1) 06/18/17 05:00 Magnesium 2.1 mg/dL (1.7-2.9) 06/17/17 05:38 Total Bilirubin 0.60 mg/dL (0.2-1.0) 06/18/17 05:00 AST 17 Units/L (15-37) 06/18/17 05:00 ALT 20 Units/L (12-78) 06/18/17 05:00 Alkaline Phosphatase 41 Units/L (46-116) L 06/18/17 05:00 Total Protein 5.9 g/dL (6.4-8.2) L 06/18/17 05:00 Albumin 2.4 g/dL (3.4-5.0) L 06/18/17 05:00 Globulin 3.5 g/dL (2.5-4.5) 06/18/17 05:00 Albumin/Globulin Ratio 0.7 Ratio (1.1-2.1) L 06/18/17 05:00 Specimen Type Catherized urine 06/14/17 17:10 Urine Color Yellow (YELLOW) 06/14/17 17:10 Urine Appearance Clear (CLEAR) 06/14/17 17:10 Urine pH 5.0 (5.0 - 8.0) 06/14/17 17:10 Ur Specific [place] 1.020 (1.000-1.030) 06/14/17 17:10 Urine Protein Negative (NEGATIVE) 06/14/17 17:10 Urine Glucose (UA) Negative (NEGATIVE) 06/14/17 17:10 Urine Ketones 2+ (NEGATIVE) 06/14/17 17:10 Urine Occult Blood Negative (NEGATIVE) 06/14/17 17:10 Urine Nitrite Negative (NEGATIVE) 06/14/17 17:10 Urine Bilirubin Negative (NEGATIVE) 06/14/17 17:10 Urine Urobilinogen Normal (NORMAL) 06/14/17 17:10 Ur Leukocyte Esterase Negative (NEGATIVE) 06/14/17 17:10 Tissue Pathology To follow 06/14/17 20:46 - Plan (1) Status post colectomy Status: Acute Plan: LOVENOX FOR PROPHYLAXIS, DILAUDID IV FOR PAIN, ZOFRAN FOR NAUSEA, ZOSYN IV TID, CONTINUE TO MONITOR (2) Cecum mass Status: Acute Plan: BIOPSY SENT TO PATHOLOGY FOR REVIEW. CONTINUE TO MONITOR (3) Hypertension Status: Acute Qualifiers: Hypertension type: essential hypertension Qualified Code(s): I10 - Essential (primary) hypertension Plan: NORVASC 5MG PO BID, LABETALOL 200MG PO BID, LISINOPRIL 40MG PO BID, CONTINUE TO MONITOR (4) Hypokalemia Status: Acute Plan: POTASSIUM REPLACEMENT PER PROTOCOL, CONTINUE TO MONITOR
[2017-06-18] MEDS: K-LYTE EFFERVESCENT PO PRN (22:58)
[2017-06-18] MEDS: ZOFRAN INJ 4 MG VIAL IV PRN (22:58)
[2017-06-19 05:23] LABS: BASOPHILS # (AUTO) 0.1 X10^3/uL (0.0-0.1); BASOPHILS % (AUTO) 0.9 % (0.2-1.0); EOSINOPHILS # (AUTO) 0.5 x10^3/uL (0.0-0.2); EOSINOPHILS % (AUTO) 4.5 % (0.9-2.9); HEMATOCRIT 31.8 % (42.0-54.0); HEMOGLOBIN 11.2 g/dL (13.5-18.0); LYMPHOCYTES # (AUTO) 1.6 X10^3/uL (1.3-2.9); LYMPHOCYTES % (AUTO) 15.2 % (21.0-51.0); MEAN CORPUSCULAR HEMOGLOBIN 30.6 pg (27.0-34.0); MEAN CORPUSCULAR HGB CONC 35.3 g/dL (33.0-35.0); MEAN CORPUSCULAR VOLUME 86.8 fL (80.0-100.0); MEAN PLATELET VOLUME 7.5 fL (7.4-11.0); MONOCYTES # (AUTO) 1.2 x10^3/uL (0.3-0.8); MONOCYTES % (AUTO) 11.3 % (0.0-13.0); NEUTROPHILS # (AUTO) 7.3 x10^3/uL (2.2-4.8); NEUTROPHILS % (AUTO) 68.1 % (42.0-75.0); PLATELET COUNT 307 X10^3/uL (150.0-450.0); RED BLOOD COUNT 3.66 X10^6/uL (4.7-6.0); RED CELL DISTRIBUTION WIDTH 12.2 % (11.6-16.5); WHITE BLOOD COUNT 10.7 X10^3/uL (3.6-10.0)
[2017-06-19 05:27] LABS: ALANINE AMINOTRANSFERASE 21 Units/L (12-78); ALBUMIN 2.4 g/dL (3.4-5.0); ALKALINE PHOSPHATASE 40 Units/L (46-116); ASPARTATE AMINO TRANSFERASE 15 Units/L (15-37); BLOOD UREA NITROGEN 9 mg/dL (7-18); CARBON DIOXIDE 26.8 mmol/L (21-32); CHLORIDE 106 mmol/L (98-107); COR CA(FOR HYPOALB) 9.3 mg/dL (8.5-10.1); COR NA(FOR HYPERGLY) 141 mmol/L (136-145); CREATININE 1.01 mg/dL (0.70-1.30); SODIUM 141 mmol/L (136-145); TOTAL PROTEIN 5.9 g/dL (6.4-8.2); eGFR BLACK RACES > 60 (>60); eGFR NON BLACK RACES > 60 (>60)
[2017-06-19] MEDS: K-LYTE EFFERVESCENT PO PRN (06:15)
--- NOTE | 2017-06-19 06:58 | RAD ---
HISTORY: Fever Study: Chest AP portable Comparison: 06/18/2017 Findings: Heart is within normal limits in size. The harika are normal. The aorta is calcified. The right lung an d left upper lung [place] are clear. Persistent increased density is present in the retrocardiac area of the left lower lobe. This could be on the basis of atelectasis, infiltrate, effusion or combinatio n. The bony thorax is unremarkable. IMPRESSION: Persistent increased density in the retrocardiac area of the left lower lobe which could be on the ba sis of atelectasis, infiltrate, effusion, or combination. Reported By:
[2017-06-19] MEDS: D5 1/2 NS 1000 ML 1,000 ML IV SCH ×4 (07:27→21:06)
[2017-06-19] MEDS: DILAUDID INJ IVP PRN ×2 (07:45→23:40)
[2017-06-19] MEDS: ZOFRAN INJ 4 MG VIAL IV PRN ×2 (07:46→21:52)
[2017-06-19] MEDS: NORMODYNE TAB 200 MG PO SCH ×2 (08:58→20:30)
[2017-06-19] MEDS: LOVENOX INJ 30 MG SYR SC SCH ×2 (08:58→20:30)
[2017-06-19] MEDS: NORVASC TAB 5 MG PO SCH ×2 (08:58→20:29)
[2017-06-19] MEDS: PROTONIX INJ 40 MG VIAL IVP SCH ×2 (08:59→20:28)
[2017-06-19] MEDS: TAB-A-VITE PO SCH (08:59)
[2017-06-19] MEDS: ZESTRIL TAB 40 MG PO SCH ×2 (08:59→20:29)
[2017-06-19] MEDS: DUONEB 0.5 MG/3 MG NEB SCH ×4 (09:55→20:08)
--- NOTE | 2017-06-19 11:01 | DR.PROGNOT ---
Hospital Progress Notes - Progress Note for Day of: Progress Note Date: 06/19/17 - Chief Complaint Chief Complaint: PO diagnostic Laparoscopy . laparotomy , Rt colectomy for cecal mass. no BM yet , vomited small amount this morning. moderate drainage in OLIVIA. afebrile for 24 h . OLIVIA was rmoved. keep on liquid diet .. pathology report showed ischemic ulceration of the cecum , no malignancy. - Past Medical Family Social History Past Med/Fam/Surg Hx: No changes since H&P Allergies: Allergies No Known Drug Allergies Allergy (Verified 06/14/17 15:30) - Review Of Systems ROS: No change since H&P - Vital Signs Vital Signs: Temperature 99.0 F Pulse Rate [Apical] 75 Pulse Rate 71 Respiratory Rate 16 Blood Pressure [Left Arm] 182/70 Blood Pressure 140/66 O2 Sat by Pulse Oximetry 98 - Physical Exam Oriented: Normal Eyes: Normal Ear: Normal Nose: Normal Throat: Normal Respiratory: Generalized, Rhonchi (scattered rhonchi both lung [place] .) Cardiovascular: Tachycardia : Normal GI:Auscultation: Normal GI:Palpation: Normal GI: Tenderness: Diffuse (moderate tympanic abdomen .) Skin: Normal Musculoskeletal: Normal Psychiatric: Normal Mood Description: Calm Speech Pattern: Clear, Appropriate - Laboratory and Diagnostics Result Diagrams: 06/19/17 04:11 06/19/17 04:11 Labs: 06/18/17 12:35 Sputum - Expectorated Sputum Sputum Culture - Preliminary 06/18/17 12:35 Sputum - Expectorated Sputum - Final Laboratory WBC 10.7 X10^3/uL (3.6-10.0) H 06/19/17 04:11 RBC 3.66 X10^6/uL (4.7-6.0) L 06/19/17 04:11 Hgb 11.2 g/dL (13.5-18.0) L 06/19/17 04:11 Hct 31.8 % (42.0-54.0) L 06/19/17 04:11 MCV 86.8 fL (80.0-100.0) 06/19/17 04:11 MCH 30.6 pg (27.0-34.0) 06/19/17 04:11 MCHC 35.3 g/dL (33.0-35.0) H 06/19/17 04:11 RDW 12.2 % (11.6-16.5) 06/19/17 04:11 Plt Count 307 X10^3/uL (150.0-450.0) 06/19/17 04:11 MPV 7.5 fL (7.4-11.0) 06/19/17 04:11 Neut % (Auto) 68.1 % (42.0-75.0) 06/19/17 04:11 Lymph % (Auto) 15.2 % (21.0-51.0) L 06/19/17 04:11 [place] % (Auto) 11.3 % (0.0-13.0) 06/19/17 04:11 Eos % (Auto) 4.5 % (0.9-2.9) H 06/19/17 04:11 Baso % (Auto) 0.9 % (0.2-1.0) 06/19/17 04:11 Neut # (Auto) 7.3 x10^3/uL (2.2-4.8) H 06/19/17 04:11 Lymph # (Auto) 1.6 X10^3/uL (1.3-2.9) 06/19/17 04:11 [place] # (Auto) 1.2 x10^3/uL (0.3-0.8) H 06/19/17 04:11 Eos # (Auto) 0.5 x10^3/uL (0.0-0.2) H 06/19/17 04:11 Baso # (Auto) 0.1 X10^3/uL (0.0-0.1) 06/19/17 04:11 Absolute Nucleated RBC 0.1 /100WBC 06/19/17 04:11 Sodium 141 mmol/L (136-145) 06/19/17 04:11 Corrected Sodium 141 mmol/L (136-145) 06/19/17 04:11 Potassium 3.4 mmol/L (3.5-5.1) L 06/19/17 04:11 Chloride 106 mmol/L (98-107) 06/19/17 04:11 Carbon Dioxide 26.8 mmol/L (21-32) 06/19/17 04:11 BUN 9 mg/dL (7-18) 06/19/17 04:11 Creatinine 1.01 mg/dL (0.70-1.30) 06/19/17 04:11 Est GFR (MDRD) Af Amer > 60 (>60) 06/19/17 04:11 Est GFR (MDRD) Non-Af > 60 (>60) 06/19/17 04:11 Glucose 117 mg/dL (65-99) H 06/19/17 04:11 Calcium 8.0 mg/dL (8.5-10.1) L 06/19/17 04:11 Corrected Calcium 9.3 mg/dL (8.5-10.1) 06/19/17 04:11 Magnesium 2.1 mg/dL (1.7-2.9) 06/17/17 05:38 Total Bilirubin 0.40 mg/dL (0.2-1.0) 06/19/17 04:11 AST 15 Units/L (15-37) 06/19/17 04:11 ALT 21 Units/L (12-78) 06/19/17 04:11 Alkaline Phosphatase 40 Units/L (46-116) L 06/19/17 04:11 Total Protein 5.9 g/dL (6.4-8.2) L 06/19/17 04:11 Albumin 2.4 g/dL (3.4-5.0) L 06/19/17 04:11 Globulin 3.5 g/dL (2.5-4.5) 06/19/17 04:11 Albumin/Globulin Ratio 0.7 Ratio (1.1-2.1) L 06/19/17 04:11 Specimen Type Catherized urine 06/14/17 17:10 Urine Color Yellow (YELLOW) 06/14/17 17:10 Urine Appearance Clear (CLEAR) 06/14/17 17:10 Urine pH 5.0 (5.0 - 8.0) 06/14/17 17:10 Ur Specific [place] 1.020 (1.000-1.030) 06/14/17 17:10 Urine Protein Negative (NEGATIVE) 06/14/17 17:10 Urine Glucose (UA) Negative (NEGATIVE) 06/14/17 17:10 Urine Ketones 2+ (NEGATIVE) 06/14/17 17:10 Urine Occult Blood Negative (NEGATIVE) 06/14/17 17:10 Urine Nitrite Negative (NEGATIVE) 06/14/17 17:10 Urine Bilirubin Negative (NEGATIVE) 06/14/17 17:10 Urine Urobilinogen Normal (NORMAL) 06/14/17 17:10 Ur Leukocyte Esterase Negative (NEGATIVE) 06/14/17 17:10 Tissue Pathology To follow 06/14/17 20:46 - Assessment and Plan 1: PO Rt colectomy for sealed perforated cecal ulcer negative for malignancy. HTN. Ex smoker. same pulmonary and post operative care , DVT prophylaxis. on full liquid . - Problem Patient Problems: Patient Problems Cecum mass (Acute) K63.9 Hypertension (Acute) I10 Hypokalemia (Acute) E87.6 RLQ abdominal pain (Acute) R10.31 Status post colectomy (Acute) Z90.49
[2017-06-19] MEDS ORDERED: DUONEB 0.5 MG/3 MG ONE (20:00)
--- NOTE | 2017-06-19 21:26 | PCM.PROG ---
Progress Note - Progress Note for Day of Date: 06/18/17 - Subjective Subjective: IS STATUS POST RIGHT COLECTOMY FOR CECAL MASS SUSPICIOUS FOR MALIGNANCY. TODAY, HE IS ALERT AND ORIENTED, LYING IN BED ON MORNING ROUNDS. SPOUSE IS AT BEDSIDE. HE CONTINUES WITH MILD PAIN TO INCISION SITE. HE IS ALSO NOTED WITH COMPLAINTS OF INCISION PAIN AND SHORTNESS OF BREATH. ON EXAMINATION, HEART IS REGULAR IN RATE AND RHYTHM. BILATERAL LUNGS CONTINUE WITH RHONCHI THROUGHOUT. ABDOMEN IS NOTED WITH TENDERNESS TO PALPATION. OLIVIA DRAIN NOTED WITH MODERATE DRAINAGE. HIS VITALS THIS MORNING ARE 98.8-74-18-94%-144/ 63. LABS WERE OBTAINED. ABNORMAL LAB VALUES INCLUDE THE FOLLOWING: WBC 10.9, RBC 3.69, HGB 11.4, HCT 32.4, POTASSIUM 3.3, GLUCOSE 112, CALCIUM 7.8, ALKALINE PHOSPHATASE 41, TOTAL PROTEIN 5.9, ALBUMIN 2.4. PATHOLOGY REPORT REVEALS THAT BIOPSY IS NEGATIVE FOR MALIGNANCY. SPUTUM CULTURE AND BLOOD CULTURES ARE PENDING. A CHEST XRAY WAS OBTAINED TODAY AND REVEALED INTERVAL DEVELOPMENT OF INCREASING DENSITY IN THE RETROCARDIAC AREA OF THE LEFT LOWER LOBE WHICH COULD BE ON THE BASIS OF ATELECTASIS, INFILTRATE, EFFUSION, OR COMBINATION. PHYSICAL THERAPY REPORTS THAT PATIENT IS AMBULATING WELL WITHOUT ASSISTANCE. HE IS CURRENTLY RECEIVING ZOSYN 3.375GM IV TID. WE WILL CONTINUE WITH CURRENT PLAN OF CARE TODAY. WE WILL REPLACE HIS POTASSIUM PER THE POTASSIUM REPLACEMENT PROTOCOL. WILL CONTINUE TO FOLLOW PATIENT. WE PLAN TO FOLLOW UP WITH AM LABS AND CONTINUE TO MONITOR PATIENT. - Past Medical Family Social History Past Med/Fam/Surg Hx: No changes since H&P Allergies: Allergies No Known Drug Allergies Allergy (Verified 06/14/17 15:30) - Review of Systems ROS: No change since H&P - Vital Signs and I&O's Vital Signs: Temperature 99.0 F Pulse Rate [Apical] 80 Pulse Rate 87 Respiratory Rate 25 Blood Pressure [Left Arm] 164/73 Blood Pressure 140/66 O2 Sat by Pulse Oximetry 97 Intake and Output: Intake & Output 06/17/17 06/18/17 06/19/17 06/20/17 11:59 11:59 11:59 11:59 Intake Total 4415 5078 4969 1485 Output Total 3060 3345 3360 Balance 1346 1734 1609 1485 - Physical Exam Oriented: Normal Eyes: Normal Ear: Normal Nose: Normal Throat: Normal Respiratory: Generalized, Rhonchi (scattered rhonchi both lung [place] .) Cardiovascular: Tachycardia : Normal Auscultation: Bowel Sounds: Normal Palpation: Normal Tenderness: Diffuse (moderate tympanic abdomen .) Skin: Normal Musculoskeletal: Normal Psychiatric: Normal Mood Description: Calm Speech Pattern: Clear, Appropriate - Laboratory and Diagnostics Result Diagrams: 06/19/17 04:11 06/19/17 04:11 Labs: 06/18/17 12:35 Sputum - Expectorated Sputum Sputum Culture - Preliminary 06/18/17 12:35 Sputum - Expectorated Sputum - Final Laboratory WBC 10.7 X10^3/uL (3.6-10.0) H 06/19/17 04:11 RBC 3.66 X10^6/uL (4.7-6.0) L 06/19/17 04:11 Hgb 11.2 g/dL (13.5-18.0) L 06/19/17 04:11 Hct 31.8 % (42.0-54.0) L 06/19/17 04:11 MCV 86.8 fL (80.0-100.0) 06/19/17 04:11 MCH 30.6 pg (27.0-34.0) 06/19/17 04:11 MCHC 35.3 g/dL (33.0-35.0) H 06/19/17 04:11 RDW 12.2 % (11.6-16.5) 06/19/17 04:11 Plt Count 307 X10^3/uL (150.0-450.0) 06/19/17 04:11 MPV 7.5 fL (7.4-11.0) 06/19/17 04:11 Neut % (Auto) 68.1 % (42.0-75.0) 06/19/17 04:11 Lymph % (Auto) 15.2 % (21.0-51.0) L 06/19/17 04:11 [place] % (Auto) 11.3 % (0.0-13.0) 06/19/17 04:11 Eos % (Auto) 4.5 % (0.9-2.9) H 06/19/17 04:11 Baso % (Auto) 0.9 % (0.2-1.0) 06/19/17 04:11 Neut # (Auto) 7.3 x10^3/uL (2.2-4.8) H 06/19/17 04:11 Lymph # (Auto) 1.6 X10^3/uL (1.3-2.9) 06/19/17 04:11 [place] # (Auto) 1.2 x10^3/uL (0.3-0.8) H 06/19/17 04:11 Eos # (Auto) 0.5 x10^3/uL (0.0-0.2) H 06/19/17 04:11 Baso # (Auto) 0.1 X10^3/uL (0.0-0.1) 06/19/17 04:11 Absolute Nucleated RBC 0.1 /100WBC 06/19/17 04:11 Sodium 141 mmol/L (136-145) 06/19/17 04:11 Corrected Sodium 141 mmol/L (136-145) 06/19/17 04:11 Potassium 3.4 mmol/L (3.5-5.1) L 06/19/17 04:11 Chloride 106 mmol/L (98-107) 06/19/17 04:11 Carbon Dioxide 26.8 mmol/L (21-32) 06/19/17 04:11 BUN 9 mg/dL (7-18) 06/19/17 04:11 Creatinine 1.01 mg/dL (0.70-1.30) 06/19/17 04:11 Est GFR (MDRD) Af Amer > 60 (>60) 06/19/17 04:11 Est GFR (MDRD) Non-Af > 60 (>60) 06/19/17 04:11 Glucose 117 mg/dL (65-99) H 06/19/17 04:11 Calcium 8.0 mg/dL (8.5-10.1) L 06/19/17 04:11 Corrected Calcium 9.3 mg/dL (8.5-10.1) 06/19/17 04:11 Magnesium 2.1 mg/dL (1.7-2.9) 06/17/17 05:38 Total Bilirubin 0.40 mg/dL (0.2-1.0) 06/19/17 04:11 AST 15 Units/L (15-37) 06/19/17 04:11 ALT 21 Units/L (12-78) 06/19/17 04:11 Alkaline Phosphatase 40 Units/L (46-116) L 06/19/17 04:11 Total Protein 5.9 g/dL (6.4-8.2) L 06/19/17 04:11 Albumin 2.4 g/dL (3.4-5.0) L 06/19/17 04:11 Globulin 3.5 g/dL (2.5-4.5) 06/19/17 04:11 Albumin/Globulin Ratio 0.7 Ratio (1.1-2.1) L 06/19/17 04:11 Specimen Type Catherized urine 06/14/17 17:10 Urine Color Yellow (YELLOW) 06/14/17 17:10 Urine Appearance Clear (CLEAR) 06/14/17 17:10 Urine pH 5.0 (5.0 - 8.0) 06/14/17 17:10 Ur Specific [place] 1.020 (1.000-1.030) 06/14/17 17:10 Urine Protein Negative (NEGATIVE) 06/14/17 17:10 Urine Glucose (UA) Negative (NEGATIVE) 06/14/17 17:10 Urine Ketones 2+ (NEGATIVE) 06/14/17 17:10 Urine Occult Blood Negative (NEGATIVE) 06/14/17 17:10 Urine Nitrite Negative (NEGATIVE) 06/14/17 17:10 Urine Bilirubin Negative (NEGATIVE) 06/14/17 17:10 Urine Urobilinogen Normal (NORMAL) 06/14/17 17:10 Ur Leukocyte Esterase Negative (NEGATIVE) 06/14/17 17:10 Tissue Pathology To follow 06/14/17 20:46 - Plan (1) Status post colectomy Status: Acute Plan: LOVENOX FOR PROPHYLAXIS, DILAUDID IV FOR PAIN, ZOFRAN FOR NAUSEA, ZOSYN IV TID, CONTINUE TO MONITOR (2) Cecum mass Status: Acute Plan: BIOPSY SENT TO PATHOLOGY FOR REVIEW. CONTINUE TO MONITOR (3) Hypertension Status: Acute Qualifiers: Hypertension type: essential hypertension Qualified Code(s): I10 - Essential (primary) hypertension Plan: NORVASC 5MG PO BID, LABETALOL 200MG PO BID, LISINOPRIL 40MG PO BID, CONTINUE TO MONITOR (4) Hypokalemia Status: Acute Plan: POTASSIUM REPLACEMENT PER PROTOCOL, CONTINUE TO MONITOR
[2017-06-19] MEDS ORDERED: NS 100 ML IV + SPIKE MINIBAG* 100 ML IV ONE (21:49)
[2017-06-19] MEDS: ZOSYN VIAL 3.375 GM IV SCH (21:52)
[2017-06-20] MEDS ORDERED: NS 100 ML IV + SPIKE MINIBAG* 100 ML IV ONE ×2 (04:37→19:35)
[2017-06-20] MEDS: D5 1/2 NS 1000 ML 1,000 ML IV SCH ×3 (05:13→20:42)
[2017-06-20] MEDS: ZOSYN VIAL 3.375 GM IV SCH ×4 (05:14→21:23)
--- NOTE | 2017-06-20 05:37 | RAD ---
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 The right lung is grossly clear . The upper lungs are grossly clear. Cardiac silhouette is unchanged. Impression: Worsened left basilar pleural parenchymal disease Reported By:
[2017-06-20 06:55] LABS: BASOPHILS # (AUTO) 0.2 X10^3/uL (0.0-0.1); BASOPHILS % (AUTO) 1.5 % (0.2-1.0); EOSINOPHILS # (AUTO) 0.3 x10^3/uL (0.0-0.2); EOSINOPHILS % (AUTO) 2.9 % (0.9-2.9); HEMATOCRIT 33.1 % (42.0-54.0); HEMOGLOBIN 11.5 g/dL (13.5-18.0); LYMPHOCYTES # (AUTO) 1.7 X10^3/uL (1.3-2.9); LYMPHOCYTES % (AUTO) 14.4 % (21.0-51.0); MEAN CORPUSCULAR HEMOGLOBIN 30.5 pg (27.0-34.0); MEAN CORPUSCULAR HGB CONC 34.7 g/dL (33.0-35.0); MEAN CORPUSCULAR VOLUME 87.8 fL (80.0-100.0); MEAN PLATELET VOLUME 7.6 fL (7.4-11.0); MONOCYTES # (AUTO) 1.3 x10^3/uL (0.3-0.8); MONOCYTES % (AUTO) 11.2 % (0.0-13.0); NEUTROPHILS # (AUTO) 8.2 x10^3/uL (2.2-4.8); PLATELET COUNT 329 X10^3/uL (150.0-450.0); RED BLOOD COUNT 3.77 X10^6/uL (4.7-6.0); RED CELL DISTRIBUTION WIDTH 12.8 % (11.6-16.5); WHITE BLOOD COUNT 11.7 X10^3/uL (3.6-10.0)
[2017-06-20 07:21] LABS: ALANINE AMINOTRANSFERASE 30 Units/L (12-78); ALBUMIN 2.5 g/dL (3.4-5.0); ALKALINE PHOSPHATASE 43 Units/L (46-116); ASPARTATE AMINO TRANSFERASE 24 Units/L (15-37); BLOOD UREA NITROGEN 9 mg/dL (7-18); CALCIUM 8.2 mg/dL (8.5-10.1); CARBON DIOXIDE 24.8 mmol/L (21-32); CHLORIDE 104 mmol/L (98-107); COR CA(FOR HYPOALB) 9.4 mg/dL (8.5-10.1); COR NA(FOR HYPERGLY) 139 mmol/L (136-145); CREATININE 0.98 mg/dL (0.70-1.30); SODIUM 139 mmol/L (136-145); eGFR BLACK RACES > 60 (>60); eGFR NON BLACK RACES > 60 (>60)
[2017-06-20] MEDS: PROTONIX INJ 40 MG VIAL IVP SCH ×2 (08:48→20:41)
[2017-06-20] MEDS: LOVENOX INJ 30 MG SYR SC SCH ×2 (08:49→20:42)
[2017-06-20] MEDS: NORMODYNE TAB 200 MG PO SCH ×2 (08:50→20:42)
[2017-06-20] MEDS: ZESTRIL TAB 40 MG PO SCH ×2 (08:50→20:42)
[2017-06-20] MEDS: NORVASC TAB 5 MG PO SCH ×2 (08:51→20:42)
[2017-06-20] MEDS: TAB-A-VITE PO SCH (08:51)
[2017-06-20] MEDS: DILAUDID INJ IVP PRN (08:52)
[2017-06-20] MEDS: DUONEB 0.5 MG/3 MG NEB SCH ×4 (09:04→20:48)
--- NOTE | 2017-06-20 11:26 | RAD ---
Examination: Abdomen series with PA chest History: Postop bowel obstruction Findings: PA upright chest demonstrates no evidence for pneumoperitoneum. Pulmonary volumes are reduc ed, and there is fluid and atelectasis at the left base. Subsequent supine and upright views of abdomen indicate surgical clips in the abdominal midline. Ther e is selective small-bowel distention with multiple fluid levels in the dilated small bowel. The stom ach is distended with fluid. No mass formation is seen. Impression: 1. Small bowel distention as described may represent postoperative ileus although the significant dil atation is suggestive of partial small bowel obstruction. Continued imaging recommended to evaluate. 2. Gastric distention with fluid. NG tube aspiration may be helpful. 3. Atelectasis and fluid at the lung bases, left greater than right. Reported By:
--- NOTE | 2017-06-20 12:41 | DR.PROGNOT ---
Hospital Progress Notes - Progress Note for Day of: Progress Note Date: 06/20/17 - Chief Complaint Chief Complaint: PO diagnostic Laparoscopy . laparotomy , Rt colectomy for ischemic ulcer of the cecum with sealed perforstin . no BM yet , c/o nausea . abdominal xray showed ileus with dilated SB and stomach. afebrile for 24 h . - Past Medical Family Social History Past Med/Fam/Surg Hx: No changes since H&P Allergies: Allergies No Known Drug Allergies Allergy (Verified 06/14/17 15:30) - Review Of Systems ROS: No change since H&P - Vital Signs Vital Signs: Temperature 99.5 F Pulse Rate [Apical] 82 Pulse Rate 73 Respiratory Rate 26 Blood Pressure [Left Arm] 166/88 Blood Pressure 140/66 O2 Sat by Pulse Oximetry 93 - Physical Exam Oriented: Normal Eyes: Normal Ear: Normal Nose: Normal Throat: Normal Respiratory: Generalized, Rhonchi (scattered rhonchi both lung [place] .) Cardiovascular: Tachycardia : Normal GI:Auscultation: Decreased GI: Tenderness: Diffuse (moderate tympanic abdomen .), Other (moderate distention and tenderness , hypoactive BS.) Skin: Normal Musculoskeletal: Normal Psychiatric: Normal Mood Description: Calm Speech Pattern: Clear, Appropriate - Laboratory and Diagnostics Result Diagrams: 06/20/17 05:36 06/20/17 05:36 Labs: 06/18/17 11:47 Blood Blood Culture - Preliminary 06/18/17 11:59 Blood Blood Culture - Preliminary 06/18/17 12:35 Sputum - Expectorated Sputum Sputum Culture - Final 06/18/17 12:35 Sputum - Expectorated Sputum - Final Laboratory WBC 11.7 X10^3/uL (3.6-10.0) H 06/20/17 05:36 RBC 3.77 X10^6/uL (4.7-6.0) L 06/20/17 05:36 Hgb 11.5 g/dL (13.5-18.0) L 06/20/17 05:36 Hct 33.1 % (42.0-54.0) L 06/20/17 05:36 MCV 87.8 fL (80.0-100.0) 06/20/17 05:36 MCH 30.5 pg (27.0-34.0) 06/20/17 05:36 MCHC 34.7 g/dL (33.0-35.0) 06/20/17 05:36 RDW 12.8 % (11.6-16.5) 06/20/17 05:36 Plt Count 329 X10^3/uL (150.0-450.0) 06/20/17 05:36 MPV 7.6 fL (7.4-11.0) 06/20/17 05:36 Neut % (Auto) 70.0 % (42.0-75.0) 06/20/17 05:36 Lymph % (Auto) 14.4 % (21.0-51.0) L 06/20/17 05:36 [place] % (Auto) 11.2 % (0.0-13.0) 06/20/17 05:36 Eos % (Auto) 2.9 % (0.9-2.9) 06/20/17 05:36 Baso % (Auto) 1.5 % (0.2-1.0) H 06/20/17 05:36 Neut # (Auto) 8.2 x10^3/uL (2.2-4.8) H 06/20/17 05:36 Lymph # (Auto) 1.7 X10^3/uL (1.3-2.9) 06/20/17 05:36 [place] # (Auto) 1.3 x10^3/uL (0.3-0.8) H 06/20/17 05:36 Eos # (Auto) 0.3 x10^3/uL (0.0-0.2) H 06/20/17 05:36 Baso # (Auto) 0.2 X10^3/uL (0.0-0.1) H 06/20/17 05:36 Absolute Nucleated RBC 0.0 /100WBC 06/20/17 05:36 Sodium 139 mmol/L (136-145) 06/20/17 05:36 Corrected Sodium 139 mmol/L (136-145) 06/20/17 05:36 Potassium 3.5 mmol/L (3.5-5.1) 06/20/17 05:36 Chloride 104 mmol/L (98-107) 06/20/17 05:36 Carbon Dioxide 24.8 mmol/L (21-32) 06/20/17 05:36 BUN 9 mg/dL (7-18) 06/20/17 05:36 Creatinine 0.98 mg/dL (0.70-1.30) 06/20/17 05:36 Est GFR (MDRD) Af Amer > 60 (>60) 06/20/17 05:36 Est GFR (MDRD) Non-Af > 60 (>60) 06/20/17 05:36 Glucose 112 mg/dL (65-99) H 06/20/17 05:36 Calcium 8.2 mg/dL (8.5-10.1) L 06/20/17 05:36 Corrected Calcium 9.4 mg/dL (8.5-10.1) 06/20/17 05:36 Magnesium 2.1 mg/dL (1.7-2.9) 06/17/17 05:38 Total Bilirubin 0.50 mg/dL (0.2-1.0) 06/20/17 05:36 AST 24 Units/L (15-37) 06/20/17 05:36 ALT 30 Units/L (12-78) 06/20/17 05:36 Alkaline Phosphatase 43 Units/L (46-116) L 06/20/17 05:36 Total Protein 6.0 g/dL (6.4-8.2) L 06/20/17 05:36 Albumin 2.5 g/dL (3.4-5.0) L 06/20/17 05:36 Globulin 3.5 g/dL (2.5-4.5) 06/20/17 05:36 Albumin/Globulin Ratio 0.7 Ratio (1.1-2.1) L 06/20/17 05:36 Specimen Type Catherized urine 06/14/17 17:10 Urine Color Yellow (YELLOW) 06/14/17 17:10 Urine Appearance Clear (CLEAR) 06/14/17 17:10 Urine pH 5.0 (5.0 - 8.0) 06/14/17 17:10 Ur Specific [place] 1.020 (1.000-1.030) 06/14/17 17:10 Urine Protein Negative (NEGATIVE) 06/14/17 17:10 Urine Glucose (UA) Negative (NEGATIVE) 06/14/17 17:10 Urine Ketones 2+ (NEGATIVE) 06/14/17 17:10 Urine Occult Blood Negative (NEGATIVE) 06/14/17 17:10 Urine Nitrite Negative (NEGATIVE) 06/14/17 17:10 Urine Bilirubin Negative (NEGATIVE) 06/14/17 17:10 Urine Urobilinogen Normal (NORMAL) 06/14/17 17:10 Ur Leukocyte Esterase Negative (NEGATIVE) 06/14/17 17:10 Tissue Pathology To follow 06/14/17 20:46 - Assessment and Plan 1: PO Rt colectomy for ischemic and sealed perforated cecal ulcer negative for malignancy. PO ileus. HTN. Ex smoker. same pulmonary and post operative care , DVT prophylaxis. to keep NPO today. - Problem Patient Problems: Patient Problems Cecum mass (Acute) K63.9 Hypertension (Acute) I10 Hypokalemia (Acute) E87.6 RLQ abdominal pain (Acute) R10.31 Status post colectomy (Acute) Z90.49
[2017-06-20] MEDS ORDERED: NS 100 ML IV 100 ML IV ONE (14:08)
[2017-06-20] MEDS ORDERED: DUONEB 0.5 MG/3 MG ONE (20:32)
[2017-06-20] MEDS: K-LYTE EFFERVESCENT PO PRN (20:41)
[2017-06-21] MEDS ORDERED: NS 100 ML IV + SPIKE MINIBAG* 100 ML IV ONE (04:34)
[2017-06-21] MEDS: D5 1/2 NS 1000 ML 1,000 ML IV SCH (05:07)
[2017-06-21] MEDS: ZOSYN VIAL 3.375 GM IV SCH (05:07)
[2017-06-21 06:24] LABS: BASOPHILS # (AUTO) 0.1 X10^3/uL (0.0-0.1); EOSINOPHILS # (AUTO) 0.5 x10^3/uL (0.0-0.2); EOSINOPHILS % (AUTO) 4.1 % (0.9-2.9); HEMATOCRIT 30.9 % (42.0-54.0); HEMOGLOBIN 10.8 g/dL (13.5-18.0); LYMPHOCYTES # (AUTO) 1.9 X10^3/uL (1.3-2.9); LYMPHOCYTES % (AUTO) 15.5 % (21.0-51.0); MEAN CORPUSCULAR HEMOGLOBIN 30.6 pg (27.0-34.0); MEAN CORPUSCULAR HGB CONC 34.9 g/dL (33.0-35.0); MEAN CORPUSCULAR VOLUME 87.7 fL (80.0-100.0); MEAN PLATELET VOLUME 7.3 fL (7.4-11.0); MONOCYTES # (AUTO) 1.4 x10^3/uL (0.3-0.8); MONOCYTES % (AUTO) 11.5 % (0.0-13.0); NEUTROPHILS # (AUTO) 8.2 x10^3/uL (2.2-4.8); NEUTROPHILS % (AUTO) 67.9 % (42.0-75.0); PLATELET COUNT 323 X10^3/uL (150.0-450.0); RED BLOOD COUNT 3.53 X10^6/uL (4.7-6.0); RED CELL DISTRIBUTION WIDTH 12.8 % (11.6-16.5); WHITE BLOOD COUNT 12.1 X10^3/uL (3.6-10.0)
[2017-06-21 06:34] LABS: ALANINE AMINOTRANSFERASE 40 Units/L (12-78); ALBUMIN 2.4 g/dL (3.4-5.0); ALKALINE PHOSPHATASE 41 Units/L (46-116); ASPARTATE AMINO TRANSFERASE 33 Units/L (15-37); BLOOD UREA NITROGEN 11 mg/dL (7-18); CALCIUM 7.9 mg/dL (8.5-10.1); CARBON DIOXIDE 26.3 mmol/L (21-32); CHLORIDE 106 mmol/L (98-107); COR CA(FOR HYPOALB) 9.2 mg/dL (8.5-10.1); CREATININE 1.04 mg/dL (0.70-1.30); SODIUM 140 mmol/L (136-145); TOTAL PROTEIN 5.6 g/dL (6.4-8.2); eGFR BLACK RACES > 60 (>60); eGFR NON BLACK RACES > 60 (>60)
--- NOTE | 2017-06-21 08:05 | RAD ---
Examination: Abdomen with PA chest History: Bowel obstruction Findings: PA chest demonstrates normal heart size. Retrocardiac opacity consistent with atelectasis/i nfiltrate and pleural fluid. Similar findings may be present at the right base but this is indefinite . Subsequent supine and upright views of abdomen demonstrate no change in the selective small-bowel dis tention. There is no evidence for developing free fluid or free air. No mass formation is seen. Impression: Persistent small bowel distention consistent with some degree of mechanical obstruction. No complicating perforation identified. Reported By:
[2017-06-21] MEDS: ZESTRIL TAB 40 MG PO SCH (09:43)
[2017-06-21] MEDS: NORVASC TAB 5 MG PO SCH (09:44)
[2017-06-21] MEDS: NORMODYNE TAB 200 MG PO SCH (09:44)
[2017-06-21] MEDS: TAB-A-VITE PO SCH (09:44)
[2017-06-21] MEDS: LOVENOX INJ 30 MG SYR SC SCH (09:46)
[2017-06-21] MEDS: PROTONIX INJ 40 MG VIAL IVP SCH (09:46)
[2017-06-21] MEDS: DUONEB 0.5 MG/3 MG NEB SCH (09:50)
[2017-06-21 10:25] VITALS: BP 152/68
--- NOTE | 2017-06-22 08:22 | PCM.PROG ---
Progress Note - Progress Note for Day of Date: 06/19/17 - Subjective Subjective: IS STATUS POST RIGHT COLECTOMY FOR CECAL MASS. TODAY, HE IS ALERT AND ORIENTED, LYING IN BED ON MORNING ROUNDS. SPOUSE IS AT BEDSIDE. HE CONTINUES WITH MILD PAIN TO INCISION SITE AND SHORTNESS OF BREATH. ON EXAMINATION, HEART IS REGULAR IN RATE AND RHYTHM. BILATERAL LUNGS NOTED WITH DIMINISHED LUNG SOUNDS THROUGHOUT. ABDOMEN IS NOTED WITH TENDERNESS TO PALPATION. OLIVIA DRAIN NOTED WITH MODERATE DRAINAGE. HIS VITALS THIS MORNING ARE 99.0-79-21-98%-161/72. LABS WERE OBTAINED. ABNORMAL LAB VALUES INCLUDE THE FOLLOWING: WBC 10.7-RBC 3.66, HGB 11.2, HCT 31.8, POTASSIUM 3.4, GLUCOSE 117, CALCIUM 8.0, ALKALINE PHOSPHATASE 40, TOTAL PROTEIN 5.9, ALBUMIN 2.4. PRELIMINARY SPUTUM CULTURE AND BLOOD CULTURES REPORT NO GROWTH. A CHEST XRAY WAS OBTAINED TODAY AND REVEALED PERSISTENT INCREASED DENSITY IN THE RETROCARDIAC AREA OF THE LEFT LOWER LOBE WHICH COULD BE ON THE BASIS OF ATELECTASIS, INFILTRATE, EFFUSION, OR COMBINATION. PHYSICAL THERAPY REPORTS THAT PATIENT CONTINUES TO AMBULATE WELL WITHOUT ASSISTANCE. HE IS CURRENTLY RECEIVING ZOSYN 3.375GM IV TID. WE WILL CONTINUE WITH CURRENT PLAN OF CARE TODAY. WE WILL REPLACE HIS POTASSIUM PER THE POTASSIUM REPLACEMENT PROTOCOL. WILL CONTINUE TO FOLLOW PATIENT. WE PLAN TO FOLLOW UP WITH AM LABS AND CONTINUE TO MONITOR PATIENT. - Past Medical Family Social History Past Med/Fam/Surg Hx: No changes since H&P Allergies: Allergies No Known Drug Allergies Allergy (Verified 06/14/17 15:30) - Review of Systems ROS: No change since H&P - Vital Signs and I&O's Vital Signs: Temperature 99.0 F Pulse Rate [Apical] 71 Pulse Rate 69 Respiratory Rate 21 Blood Pressure [Left Arm] 152/68 Blood Pressure 140/66 O2 Sat by Pulse Oximetry 96 Intake and Output: Intake & Output 06/19/17 06/20/17 06/21/17 06/22/17 11:59 11:59 11:59 11:59 Intake Total 3801 4467 3250 Output Total 3360 2025 840 Balance 1609 2443 2410 - Physical Exam Oriented: Normal Eyes: Normal Ear: Normal Nose: Normal Throat: Normal Respiratory: Generalized, Diminished Cardiovascular: Tachycardia : Normal Auscultation: Bowel Sounds: Decreased Palpation: Normal Tenderness: Diffuse (moderate tympanic abdomen .), Other (moderate distention and tenderness , hypoactive BS.) Skin: Normal Musculoskeletal: Normal Psychiatric: Normal Mood Description: Calm Speech Pattern: Clear, Appropriate - Laboratory and Diagnostics Result Diagrams: 06/21/17 05:46 06/21/17 05:46 Labs: 06/18/17 11:47 Blood Blood Culture - Preliminary 06/18/17 11:59 Blood Blood Culture - Preliminary 06/18/17 12:35 Sputum - Expectorated Sputum Sputum Culture - Final 06/18/17 12:35 Sputum - Expectorated Sputum - Final Laboratory WBC 12.1 X10^3/uL (3.6-10.0) H 06/21/17 05:46 RBC 3.53 X10^6/uL (4.7-6.0) L 06/21/17 05:46 Hgb 10.8 g/dL (13.5-18.0) L 06/21/17 05:46 Hct 30.9 % (42.0-54.0) L 06/21/17 05:46 MCV 87.7 fL (80.0-100.0) 06/21/17 05:46 MCH 30.6 pg (27.0-34.0) 06/21/17 05:46 MCHC 34.9 g/dL (33.0-35.0) 06/21/17 05:46 RDW 12.8 % (11.6-16.5) 06/21/17 05:46 Plt Count 323 X10^3/uL (150.0-450.0) 06/21/17 05:46 MPV 7.3 fL (7.4-11.0) L 06/21/17 05:46 Neut % (Auto) 67.9 % (42.0-75.0) 06/21/17 05:46 Lymph % (Auto) 15.5 % (21.0-51.0) L 06/21/17 05:46 [place] % (Auto) 11.5 % (0.0-13.0) 06/21/17 05:46 Eos % (Auto) 4.1 % (0.9-2.9) H 06/21/17 05:46 Baso % (Auto) 1.0 % (0.2-1.0) 06/21/17 05:46 Neut # (Auto) 8.2 x10^3/uL (2.2-4.8) H 06/21/17 05:46 Lymph # (Auto) 1.9 X10^3/uL (1.3-2.9) 06/21/17 05:46 [place] # (Auto) 1.4 x10^3/uL (0.3-0.8) H 06/21/17 05:46 Eos # (Auto) 0.5 x10^3/uL (0.0-0.2) H 06/21/17 05:46 Baso # (Auto) 0.1 X10^3/uL (0.0-0.1) 06/21/17 05:46 Absolute Nucleated RBC 0.0 /100WBC 06/21/17 05:46 Sodium 140 mmol/L (136-145) 06/21/17 05:46 Corrected Sodium TNP 06/21/17 05:46 Potassium 3.4 mmol/L (3.5-5.1) L 06/21/17 05:46 Chloride 106 mmol/L (98-107) 06/21/17 05:46 Carbon Dioxide 26.3 mmol/L (21-32) 06/21/17 05:46 BUN 11 mg/dL (7-18) 06/21/17 05:46 Creatinine 1.04 mg/dL (0.70-1.30) 06/21/17 05:46 Est GFR (MDRD) Af Amer > 60 (>60) 06/21/17 05:46 Est GFR (MDRD) Non-Af > 60 (>60) 06/21/17 05:46 Glucose 105 mg/dL (65-99) H 06/21/17 05:46 Calcium 7.9 mg/dL (8.5-10.1) L 06/21/17 05:46 Corrected Calcium 9.2 mg/dL (8.5-10.1) 06/21/17 05:46 Magnesium 2.1 mg/dL (1.7-2.9) 06/17/17 05:38 Total Bilirubin 0.60 mg/dL (0.2-1.0) 06/21/17 05:46 AST 33 Units/L (15-37) 06/21/17 05:46 ALT 40 Units/L (12-78) 06/21/17 05:46 Alkaline Phosphatase 41 Units/L (46-116) L 06/21/17 05:46 Total Protein 5.6 g/dL (6.4-8.2) L 06/21/17 05:46 Albumin 2.4 g/dL (3.4-5.0) L 06/21/17 05:46 Globulin 3.2 g/dL (2.5-4.5) 06/21/17 05:46 Albumin/Globulin Ratio 0.8 Ratio (1.1-2.1) L 06/21/17 05:46 Specimen Type Catherized urine 06/14/17 17:10 Urine Color Yellow (YELLOW) 06/14/17 17:10 Urine Appearance Clear (CLEAR) 06/14/17 17:10 Urine pH 5.0 (5.0 - 8.0) 06/14/17 17:10 Ur Specific [place] 1.020 (1.000-1.030) 06/14/17 17:10 Urine Protein Negative (NEGATIVE) 06/14/17 17:10 Urine Glucose (UA) Negative (NEGATIVE) 06/14/17 17:10 Urine Ketones 2+ (NEGATIVE) 06/14/17 17:10 Urine Occult Blood Negative (NEGATIVE) 06/14/17 17:10 Urine Nitrite Negative (NEGATIVE) 06/14/17 17:10 Urine Bilirubin Negative (NEGATIVE) 06/14/17 17:10 Urine Urobilinogen Normal (NORMAL) 06/14/17 17:10 Ur Leukocyte Esterase Negative (NEGATIVE) 06/14/17 17:10 Tissue Pathology To follow 06/14/17 20:46 - Plan (1) Status post colectomy Status: Acute Plan: LOVENOX FOR PROPHYLAXIS, DILAUDID IV FOR PAIN, ZOFRAN FOR NAUSEA, ZOSYN IV TID, CONTINUE TO MONITOR (2) Cecum mass Status: Acute Plan: BIOPSY SENT TO PATHOLOGY FOR REVIEW. CONTINUE TO MONITOR (3) Pneumonia Status: Acute Qualifiers: Pneumonia type: due to unspecified organism Laterality: left Lung location: lower lobe of lung Qualified Code(s): J18.1 - Lobar pneumonia, unspecified organism Plan: ZOSYN 3.375GM IV TID, RESPIRATORY TREATMENTS, SUPPLEMENTAL OXYGEN, CONTINUE TO MONITOR (4) Hypertension Status: Acute Qualifiers: Hypertension type: essential hypertension Qualified Code(s): I10 - Essential (primary) hypertension Plan: NORVASC 5MG PO BID, LABETALOL 200MG PO BID, LISINOPRIL 40MG PO BID, CONTINUE TO MONITOR (5) Hypokalemia Status: Acute Plan: POTASSIUM REPLACEMENT PER PROTOCOL, CONTINUE TO MONITOR
== END 2017-06-21 12:50 | disposition home or self-care (01) | DRG 329 ==
LOC: ER 13:54 → SURG1 16:21 → ICU 19:59
PROVIDERS: ADMIT Internal Medicine; ATTEND Internal Medicine
PROC: 0DBH4ZZ Excision of Cecum, Percutaneous Endoscopic Approach (ICD-10-PCS; 2017-06-14)
PROC: 0D1 Gastrointestinal System, Bypass (ICD-10-PCS; principal; 2017-06-14 16:00)
DX: K63.89 Other specified diseases of intestine (principal); J18.1 Lobar pneumonia, unspecified organism; R10.84 Generalized abdominal pain; R10.31 Right lower quadrant pain; N18.9 Chronic kidney disease, unspecified; I12.9 Hypertensive chronic kidney disease with stage 1 through stage 4 chronic kidney disease, or unspecified chronic kidney disease; R06.02 Shortness of breath; K21.9 Gastro-esophageal reflux disease without esophagitis; E87.6 Hypokalemia; I95.89 Other hypotension; R26.89 Other abnormalities of gait and mobility
CPT/HCPCS: 36415; 71045; 74022; 74176; 80053; 81003; 83735; 84132; 85025; 87040; 87070; 87205; 93005; 93010; 94640; 96365; 96374; 97535; 99100; 99284; 99285; A4216; A4222; C9113; J0330; J1100; J1170; J1650; J1885; J2250; J2405; J2543; J2710; J3010; J3480; J3490; J7042; J7120; J7620